=== PATIENT | male | born 1990 | race Caucasian/White ===

== ENCOUNTER 2021-12-01 15:42 | Emergency (ER) | payer OTHER, SELFPAY ==
[2021-12-01 15:46] VITALS: BP 135/97; PULSE 96; RESP 16; TEMP 36.7; O2SAT 98
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
== END 2021-12-01 16:10 | disposition home or self-care (01) ==
PROVIDERS: Emergency Provider Nurse Practitioner Family
DX: T22.111A Burn of first degree of right forearm, initial encounter (principal); X15.8XXA Contact with other hot household appliances, initial encounter; Y93.G2 Activity, grilling and smoking food; G40.909 Epilepsy, unspecified, not intractable, without status epilepticus
CPT/HCPCS: 99203; G0463

== ENCOUNTER 2022-07-20 14:59 | Emergency (ER) | payer OTHER, SELFPAY ==
[2022-07-20 15:09] VITALS: BP 114/77; PULSE 92; RESP 20; TEMP 36.5; O2SAT 100
[2022-07-20 15:10] VITALS: BP 114/77; PULSE 92; RESP 20; TEMP 36.5; O2SAT 100
--- NOTE | 2022-07-20 15:10 | ED.URI ---
HPI - URI/Sore Throat General Chief Complaint: Upper Respiratory Infection Stated Complaint: Sore Throat Time Seen by Provider: 07/20/22 15:30 Source: patient and RN notes reviewed Mode of arrival: ambulatory Limitations: no limitations History of Present Illness HPI Narrative: 32-year-old male presents with concern for 2 day history of cough, sore throat, nasal congestion. He reports persistent cough. Reports his throat hurts mostly when he coughs. Denies fever, chills, sweats, body aches MD elicited complaint: cough and sore throat Related Data Home Medications Medication Instructions Recorded Confirmed levetiracetam 1,000 mg tablet 1,000 mg PO BID 12/01/21 07/20/22 oxcarbazepine 150 mg tablet 450 mg PO TID 12/01/21 07/20/22 diclofenac sodium 75 mg 75 mg PO BID PRN Pain 07/20/22 07/20/22 tablet,delayed release Allergies Allergy/AdvReac Type Severity Reaction Status Date / Time No Known Allergies Allergy Unverified 07/20/22 15:09 Review of Systems Review of Systems: CONSTITUTIONAL: Denies malaise, chills, sweats, or fever. EYES: Denies visual changes, redness, or discharge. ENT: Reports congestion, sore throat. CARDIOVASCULAR: Denies chest pain, palpitations, or edema. RESPIRATORY: Reports cough. Denies dyspnea. GASTROINTESTINAL: Denies abdominal pain, nausea, vomiting, diarrhea SKIN: Denies rash or itching. MUSCULOSKELETAL: Denies myalgia. NEUROLOGIC: Denies headache. All systems reviewed & are unremarkable except as noted in HPI and below PMFSH Comments At time of signature, agree with nursing past medical, surgical, social and family history. There is no relevant family history pertinent to the presenting complaint Exam Narrative: GENERAL: Well-appearing, well-nourished, and in no acute distress. HEAD: Normocephalic EYES: PERRLA, conjunctivae clear ENT: Nares clear, turbinates edematous and erythematous, postnasal drainage. Mucous membranes moist. TM pearly pisano with dull light reflex bilaterally; no tragal tenderness. Oropharynx erythematous without lesions. Tonsils not enlarged and without exudate, no drooling, no hoarseness, no trismus, uvula midline. NECK: Supple. No lymphadenopathy CHEST: Clear to auscultation, breath sounds equal. No wheezing, rhonchi, rales, or stridor. No respiratory distress, speaks in full sentences. Cough noted HEART: Regular rate and rhythm. No murmur heard. SKIN: Warm, dry, no rash. NEURO: Alert and oriented x3. PSYCH: Normal mood and affect Course Course Emergency Course: Patient is aware of diagnosis, understands and agrees to treatment plan. Anticipatory guidance given. Patient agrees to follow-up as directed and is aware of reasons to seek care at the emergency department. Portions of this record may have been created with voice recognition software Level of Care: Express Care Visit Vital Signs Vital signs: Vital Signs Temperature 97.7 F 07/20/22 15:09 Pulse Rate 92 07/20/22 15:09 Respiratory Rate 20 07/20/22 15:09 Blood Pressure 114/77 07/20/22 15:09 Pulse Oximetry 100 07/20/22 15:09 Oxygen Delivery Room Air 07/20/22 15:09 Temperature 97.7 F 07/20/22 15:09 Pulse Rate 92 07/20/22 15:09 Respiratory Rate 20 07/20/22 15:09 Blood Pressure 114/77 07/20/22 15:09 Pulse Oximetry 100 07/20/22 15:09 Oxygen Delivery Room Air 07/20/22 15:09 Reviewed. MDM - URI/Sore Throat MDM Narrative Medical decision making narrative: Differential diagnosis considered: Gibson virus, strep pharyngitis, allergic rhinitis, upper respiratory tract infection, sinusitis, rhinosinusitis, nasopharyngitis. viral pharyngitis, otitis media, otitis externa, pneumonia, bronchitis, viral cough syndrome, viral syndrome, and influenza. Exam findings show no acute concerns or changes; patient is non-toxic appearing and is in no distress. Patient is appropriate for outpatient treatment and follow-up. Lab Data Attestation: I reviewed the patient's lab resu
== END 2022-07-20 16:00 | disposition home or self-care (01) ==
PROVIDERS: Emergency Provider Nurse Practitioner
DX: J06.9 Acute upper respiratory infection, unspecified (principal); G40.909 Epilepsy, unspecified, not intractable, without status epilepticus
CPT/HCPCS: 87081; 87880; 99213; G0463

== ENCOUNTER 2022-09-28 08:32 | Emergency (ER) | payer OTHER, SELFPAY ==
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
[2022-09-28 08:37] VITALS: BP 142/92; PULSE 88; RESP 16; TEMP 36.8; O2SAT 97
== END 2022-09-28 08:58 | disposition home or self-care (01) ==
PROVIDERS: Emergency Provider Nurse Practitioner Family
DX: T78.40XA Allergy, unspecified, initial encounter (principal); R21 Rash and other nonspecific skin eruption
CPT/HCPCS: 99213; G0463

== ENCOUNTER 2022-10-10 18:30 | Emergency (ER) | payer OTHER, SELFPAY ==
[2022-10-10 18:34] VITALS: BP 147/88; PULSE 87; RESP 20; TEMP 36.7; O2SAT 95
--- NOTE | 2022-10-10 18:42 | ED.GENADULT ---
HPI - General Adult General Chief complaint: Upper Respiratory Infection Stated complaint: right side throat hurts when coughs Time Seen by Provider: 10/10/22 18:42 Source: patient, RN notes reviewed and old records reviewed Mode of arrival: ambulatory Limitations: no limitations History of Present Illness HPI narrative: 32-year-old male presents to the [facility] with complaints of right-sided neck pain. Pain when he coughs, pain with movement, pain with palpation. Pain along the lateral aspect. Denies any sore throat, sinus congestion. States he has been sleeping in a reclining chair for the last couple of days. No bruising or swelling. No increased erythema No midline tenderness. Denies fevers Related Data Home Medications Medication Instructions Recorded Confirmed levetiracetam 1,000 mg tablet 1,000 mg PO BID 12/01/21 09/28/22 oxcarbazepine 150 mg tablet 450 mg PO TID 12/01/21 09/28/22 Allergies Allergy/AdvReac Type Severity Reaction Status Date / Time No Known Allergies Allergy Verified 09/28/22 08:46 Review of Systems Review of Systems: All systems reviewed & are unremarkable except as noted in HPI and below Constitutional: Constitutional: Reports no additional constitutional complaints Eyes: Eyes: Reports no additional eye complaints ENT: Reports system reviewed and no additional complaints, except as documented Cardiovascular: Cardiovascular: Reports no additional cardiovascular complaints, Denies chest pain and Denies dyspnea Respiratory: Respiratory: Reports no additional respiratory complaints, Denies chest congestion, Denies cough and Denies dyspnea Gastrointestinal: Gastrointestinal: Reports no additional gastrointestinal complaints, Denies abdominal pain, Denies nausea and Denies vomiting Musculoskeletal: Musculoskeletal: Reports as per HPI Integumentary/Breasts: Skin/Breast: Reports system reviewed and no additional complaints, except as docu Neurologic: Reports system reviewed and no additional complaints, except as documented Psychiatric: Psychiatric: Reports no additional psychiatric complaints Allergic/Immunologic: Allergic/Immunologic: Reports no additional allergic/immunologic complaints PMFSH Comments At the time of my signature, I reviewed and agree with the nursing past medical, surgical, social, and family history. There is no relevant family history pertinent to the patient complaint. Exam Const: General: cooperative, healthy appearing, comfortable, no acute distress, well developed, alert and well nourished Nutritional Appearance: well nourished and obese Orientation/consciousness: patient oriented x3 Limitations: no limitations HENMT: Head: normal to inspection Ears: hearing grossly normal bilaterally and external ears normal Face/Nose/Sinus: Normal external nose present, Normal nares present, Normal nasal mucous membranes and turbinates present and normal facial exam Face and sinus: normal facial exam Mouth: Yes Normal oral and palatal mucosa present, Yes lip normal and Yes moist mucous membranes Throat: posterior oropharynx normal and uvula midline Eyes: General: appearance normal, both eyes and all related structures Alignment and Position: alignment normal Periorbital: periorbital findings normal Conjunctivae: conjunctivae normal Pupils: Equal, round and reactive pupils present EOM: EOMs intact bilaterally Neck: Neck: normal visual inspection, full ROM, no lymphadenopathy and no meningeal signs Other: Right lateral neck pain. Chest: Chest palpation & inspection: normal inspection of the chest Resp: Effort & Inspection: normal respiratory effort and able to speak in complete sentences Auscultation: clear to auscultation bilaterally, no crackles, no rales, no rhonchi and no wheezes Cardio: Rate: regular rate Rhythm: regular rhythm Back/Spine/Pelvis: Cervical Spine: cervical ROM normal Thoracic/Lumbar Spine: No thoracic spinal tenderness Skin: General ski
== END 2022-10-10 18:55 | disposition home or self-care (01) ==
PROVIDERS: Emergency Provider Nurse Practitioner
DX: S16.1XXA Strain of muscle, fascia and tendon at neck level, initial encounter (principal); X58.XXXA Exposure to other specified factors, initial encounter; R05.9 Cough, unspecified; G40.909 Epilepsy, unspecified, not intractable, without status epilepticus
CPT/HCPCS: 87081; 87880; 99213; G0463

== ENCOUNTER 2023-08-07 11:06 | Emergency (ER) | payer OTHER, SELFPAY ==
[2023-08-07 11:10] VITALS: BP 123/76; PULSE 61; RESP 16; TEMP 36.5; O2SAT 97
--- NOTE | 2023-08-07 11:48 | ED.EAR ---
HPI - Ear Problem General Chief complaint: Ear Stated complaint: Right Ear Pain Source: patient Mode of arrival: ambulatory Limitations: no limitations History of Present Illness HPI Narrative: Patient presents for evaluation of right ear pain. Symptom onset this morning. He states that pain is rated 7/10 severity, described as throbbing. He denies any fever, chills, headache, sore throat, respiratory symptoms. He tried taking Tylenol for symptoms, which helped. He has some chronic hearing loss although he is not sure which ear is affected. No recent sick contacts to his knowledge. No drainage from the ears. Related Data Home Medications Medication Instructions Recorded Confirmed levetiracetam 1,000 mg tablet 1,000 mg PO BID 12/01/21 08/07/23 oxcarbazepine 150 mg tablet 450 mg PO TID 12/01/21 08/07/23 Allergies Allergy/AdvReac Type Severity Reaction Status Date / Time No Known Allergies Allergy Verified 08/07/23 11:19 Review of Systems Review of Systems: CONSTITUTIONAL: Denies fever, chills, or sweats. EYES: Denies visual changes, redness, or discharge. ENT: Reports right-sided ear pain. Denies rhinorrhea, congestion, or sore throat CARDIOVASCULAR: Denies chest pain, palpitations, or edema. RESPIRATORY: Denies cough or dyspnea. GASTROINTESTINAL: Denies abdominal pain, nausea, vomiting, or diarrhea. GENITOURINARY: Denies dysuria or hematuria. SKIN: Denies rash or itching. MUSCULOSKELETAL: Denies back pain, joint pain, or myalgia. NEUROLOGIC: Denies headache, numbness, dizziness, or weakness. PSYCHIATRIC: Denies anxiety or depression. [facility] Past Medical History Medical History Seizure Surgical History Surgical History No pertinent past surgical history Family History Family History Mother Family history non-contributory Social History Social History Smoking status: Former smoker Substance use: current Substance use type: marijuana Gender identity (if verbalized by the patient): Male Sexual Orientation (if Verbalized by the Patient): Straight or Heterosexual Spiritual care concerns: No Exam Narrative: GENERAL: Well-appearing, well-nourished, and in no acute distress. HEAD: Normocephalic, atraumatic. EYES: PERRLA and EOMI. ENT: Nares clear, no rhinorrhea or epistaxis. Mucous membranes moist. Oropharynx without tonsillar hypertrophy exudate or other lesions. Right tympanic membrane is erythematous and bulging. NECK: Supple. No adenopathy or masses. No carotid bruits or JVD CHEST: Clear to auscultation. No respiratory distress. No wheezes rales or rhonchi HEART: Regular rate and rhythm. No murmur heard. Normal peripheral pulses. ABDOMEN: Soft, nontender, nondistended, normal active bowel sounds. EXTREMITIES: Normal range of motion. No edema. SKIN: Warm, dry, no rash. NEURO: No focal deficits. Alert and oriented x3. PSYCH: Normal mood and affect. Course Course Emergency Course: This is a 33-year-old male who presented for evaluation of right-sided ear pain. He has evidence of otitis media on exam. Will treat with Augmentin. Recommend he stop smoking marijuana. Follow-up with primary provider. Go to the ER for worsening symptoms. Patient in agreement with plan of care Level of Care: Express Care Visit Vital Signs Vital signs: Vital Signs Temperature 36.5 C 08/07/23 11:10 Pulse Rate 61 08/07/23 11:10 Respiratory Rate 16 08/07/23 11:10 Blood Pressure 123/76 08/07/23 11:10 Pulse Oximetry 97 08/07/23 11:10 Oxygen Delivery Room Air 08/07/23 11:10 Temperature 36.5 C 08/07/23 11:10 Pulse Rate 61 08/07/23 11:10 Respiratory Rate 16 08/07/23 11:10 Blood Pressure 123/76 08/07/23 11:10 Pulse Oxime
== END 2023-08-07 11:52 | disposition home or self-care (01) ==
PROVIDERS: Emergency Provider Nurse Practitioner
DX: H66.91 Otitis media, unspecified, right ear (principal); Z79.899 Other long term (current) drug therapy; Z87.891 Personal history of nicotine dependence
CPT/HCPCS: 99213; G0463

== ENCOUNTER 2024-02-15 11:20 | Emergency (ER) | payer OTHER, SELFPAY ==
--- NOTE | ~2024-02-15 | XR_ITS ---
EXAMINATION: XR shoulder LT min 2V DATE: 02/15/2024 12:04 INDICATION: Left shoulder pain. TECHNIQUE: 4 views of left shoulder were obtained. COMPARISON: None. FINDINGS: Alignment is normal. No acute fracture. There is plate and screw fixation of the scapula. T he glenohumeral joint is normal. There is mild acromioclavicular joint osteoarthritis. IMPRESSION: 1. Mild left acromioclavicular joint osteoarthritis. 2. Internal fixation of left scapula. Reviewed, dictated and finalized at location A.
[2024-02-15 11:26] VITALS: BP 141/98; PULSE 67; RESP 16; TEMP 36.4; O2SAT 98
--- NOTE | 2024-02-15 11:47 | ED.UPPEXIN ---
HPI - Extremity Injury (Upper) General Chief Complaint: Extremity Injury, Upper Stated Complaint: Left Shoulder Injury/Seizure Time Seen by Provider: 02/15/24 11:47 Source: patient Mode of arrival: ambulatory Limitations: no limitations History of Present Illness HPI narrative: 33-year-old male presents with complaint of pain to left shoulder. Patient states that he had a seizure and fell onto left shoulder. History surgical repair to left scapula. Requesting x-ray to make sure he did not damage the plate and screws to his left scapula. Reports pain to anterior aspect of left shoulder following the fall today. Patient has a seizure disorder. No recent changes to his medications. States it is normal for him to have seizures from time to time, was with him during seizure. All systems reviewed and negative except as noted above. Related Data Home Medications Medication Instructions Recorded Confirmed levetiracetam 1,000 mg tablet 1,000 mg PO BID 12/01/21 08/07/23 oxcarbazepine 150 mg tablet 450 mg PO TID 12/01/21 08/07/23 Allergies Allergy/AdvReac Type Severity Reaction Status Date / Time No Known Allergies Allergy Verified 08/07/23 11:19 Review of Systems Review of Systems: CONSTITUTIONAL: Denies fever, chills, or sweats. EYES: Denies visual changes, redness, or discharge. ENT: Denies rhinorrhea, congestion, sore throat, or otalgia. CARDIOVASCULAR: Denies chest pain, palpitations, or edema. RESPIRATORY: Denies cough or dyspnea. GASTROINTESTINAL: Denies abdominal pain, nausea, vomiting, or diarrhea. GENITOURINARY: Denies dysuria or hematuria. SKIN: Denies rash or itching. MUSCULOSKELETAL: Denies back pain or myalgia. Reports left shoulder pain. NEUROLOGIC: Denies headache, numbness, or weakness. PSYCHIATRIC: Denies anxiety or depression. All other systems reviewed are negative, except as documented in HPI. [facility] Past Medical History Medical History (Updated 02/15/24 @ 12:20 by Bebe Black NP) Seizure Surgical History Surgical History No pertinent past surgical history Family History Family History Mother Family history non-contributory Social History Social History Smoking status: Former smoker Substance use: current Substance use type: marijuana Gender identity (if verbalized by the patient): Male Sexual Orientation (if Verbalized by the Patient): Straight or Heterosexual Spiritual care concerns: No Comments At time of signature, agree with nursing past medical, surgical, social and family history. There is no relevant family history pertinent to the presenting complaint. Exam Narrative: GENERAL: This is a well-nourished, well-developed patient, in no apparent distress. HEAD: normocephalic, atraumatic. EYES: PERRL. Sclera clear/white. Vision is grossly intact. EARS: External ears normal NOSE: External nose normal NECK: Neck supple, non-tender without lymphadenopathy, masses or thyromegaly. CARDIOVASCULAR: Regular rate and rhythm without murmurs, gallops, or rubs. RESPIRATORY: Clear to auscultation. Breath sounds equal bilaterally. No wheezes, rales, or rhonchi. SKIN: warm, Dry, intact with no suspicious lesions or rash, good texture and turgor. NEURO: awake, alert, and oriented to person, place and time. There were no obvious focal neurologic abnormalities. EXTREMITIES: Tenderness to anterior aspect left shoulder joint. No deformity. Range of motion intact. Strength right upper extremity 5/5. Course Course Level of Care: Express Care Visit Vital Signs Vital signs: Vital Signs Temperature 36.4 C 02/15/24 11:26 Pulse Rate 67 02/15/24 11:26 Respiratory Rate 16 02/15/24 11:26 Blood Pressure 141/98 H 02/15/24 11:26 Pulse Oximetry 98 02/15/24 11:26
== END 2024-02-15 12:24 | disposition home or self-care (01) ==
PROVIDERS: Emergency Provider Nurse Practitioner Family
DX: S43.402A Unspecified sprain of left shoulder joint, initial encounter (principal); W19.XXXA Unspecified fall, initial encounter; G40.909 Epilepsy, unspecified, not intractable, without status epilepticus
CPT/HCPCS: 73030; 99213; G0463

== ENCOUNTER 2024-03-31 17:07 | Emergency (ER) | payer OTHER, SELFPAY ==
[2024-03-31 17:47] VITALS: BP 126/84; PULSE 81; RESP 20; TEMP 36.8; O2SAT 98
--- NOTE | 2024-03-31 18:16 | ED.URI ---
HPI - URI/Sore Throat General Chief Complaint: Upper Respiratory Infection Stated Complaint: throat Time Seen by Provider: 03/31/24 18:16 History of Present Illness HPI Narrative: 33-year-old male presented for complaint of sore throat, cough, nasal congestion . onset today. Endorses exposure to strep throat. Not taking anything for symptoms. Related Data Home Medications Medication Instructions Recorded Confirmed levetiracetam 1,000 mg tablet 1,000 mg PO BID 12/01/21 03/31/24 oxcarbazepine 150 mg tablet 450 mg PO TID 12/01/21 03/31/24 Allergies Allergy/AdvReac Type Severity Reaction Status Date / Time No Known Allergies Allergy Verified 03/31/24 18:17 Review of Systems Review of Systems: CONSTITUTIONAL: Denies body aches, fever, chills, or sweats. EYES: Denies visual changes, redness, or discharge. ENT: Reports sore throat, rhinorrhea, congestion CARDIOVASCULAR: Denies chest pain, palpitations, or edema. RESPIRATORY: Denies dyspnea. GASTROINTESTINAL: Denies abdominal pain, nausea, vomiting, or diarrhea. SKIN: Denies rash, itching, or wounds. MUSCULOSKELETAL: Denies back pain, joint pain, or myalgia. NEUROLOGIC: Denies headache PMFSH Past Medical History Medical History Seizure Surgical History Surgical History No pertinent past surgical history Family History Family History Mother Family history non-contributory Social History Social History Smoking status: Former smoker Substance use: current Substance use type: marijuana Gender identity (if verbalized by the patient): Male Sexual Orientation (if Verbalized by the Patient): Straight or Heterosexual Spiritual care concerns: No Exam Narrative: GENERAL: mildly Ill-appearing, no acute distress. EYES: conjunctivae clear ENT: Mucous membranes moist. left TM pearly pisano with normal light reflex; Right TM erythematous, bulging and intact; canal not erythematous, no drainage no tragal tenderness. Oropharynx erythematous without lesions. Tonsils enlarged and without exudate. No drooling, no hoarseness, no trismus, uvula midline. No tripod positioning, hot potato voice, or soft palate swelling. NECK: Supple. No lymphadenopathy CHEST: Clear to auscultation, breath sounds equal. No respiratory distress, speaks in full sentences. HEART: Regular rate and rhythm. No murmur heard. SKIN: Warm, dry, no rash. NEURO: Alert and oriented x3. Course Course Emergency Course: Patient is aware of diagnosis, understands and agrees to treatment plan. Anticipatory guidance given. Patient agrees to follow-up as directed and is aware of reasons to seek care at the emergency department. Portions of this record may have been created with voice recognition software Level of Care: Express Care Visit Vital Signs Vital signs: Vital Signs Temperature 98.2 F 03/31/24 17:47 Pulse Rate 81 03/31/24 17:47 Respiratory Rate 20 03/31/24 17:47 Blood Pressure 126/84 03/31/24 17:47 Pulse Oximetry 98 03/31/24 17:47 Temperature 98.2 F 03/31/24 17:47 Pulse Rate 81 03/31/24 17:47 Respiratory Rate 20 03/31/24 17:47 Blood Pressure 126/84 03/31/24 17:47 Pulse Oximetry 98 03/31/24 17:47 MDM - URI/Sore Throat MDM Narrative Medical decision making narrative: negative strep result reviewed with pt. will provide antibiotic based on PE, CC, known exposure. he will start it if symptoms worsen over the next few days. Advise supportive treatments. Patient is appropriate for outpatient treatment and follow-up. Differential Diagnosis Differential diagnosis: Likely upper respiratory infection, viral infection and pharyngitis Discharge Plan Discharge Clinical Impression: Otitis media, Pharyngitis
[2024-03-31 19:58] LABS: EDSTREPNEGPOS1 Presumptive Negative
== END 2024-03-31 18:30 | disposition home or self-care (01) ==
PROVIDERS: Emergency Provider Nurse Practitioner Family
DX: H66.91 Otitis media, unspecified, right ear (principal); J02.9 Acute pharyngitis, unspecified; G40.909 Epilepsy, unspecified, not intractable, without status epilepticus; F12.90 Cannabis use, unspecified, uncomplicated; Z87.891 Personal history of nicotine dependence
CPT/HCPCS: 87081; 87880; 99213; G0463

== ENCOUNTER 2024-05-10 11:56 | Emergency (ER) | payer OTHER, SELFPAY ==
[2024-05-10 12:08] VITALS: BP 125/99; PULSE 96; RESP 20; TEMP 36.8; O2SAT 99
--- NOTE | 2024-05-10 13:11 | ED.URI ---
HPI - URI/Sore Throat General Chief Complaint: Upper Respiratory Infection Stated Complaint: cough/weak/nose running Time Seen by Provider: 05/10/24 12:35 Source: patient, RN notes reviewed and old records reviewed Mode of arrival: ambulatory Limitations: no limitations History of Present Illness HPI Narrative: 34 year old male who presents to express care with complaints of cough, runny nose, weakness headache and body aches since yesterday. Patient reports that he has been taking Tylenol for his generalized body aches, reports that he has not noted any fevers. Patient reports that he does have history of seizures takes daily Keppra and oxcarbazepine..Patient reports no known ill contacts. MD elicited complaint: cough and sore throat Pertinent past history: other (seizures) Onset (ago): day(s) (since yesterday) Severity: moderate Pain scale (0-10): 6 Able to tolerate fluids by mouth: Yes Treatments prior to arrival: acetaminophen Related Data Home Medications Medication Instructions Recorded Confirmed levetiracetam 1,000 mg tablet 1,000 mg PO BID 12/01/21 05/10/24 oxcarbazepine 150 mg tablet 450 mg PO TID 12/01/21 05/10/24 Allergies Allergy/AdvReac Type Severity Reaction Status Date / Time No Known Allergies Allergy Verified 05/10/24 12:21 Review of Systems Review of Systems: CONSTITUTIONAL:Reports malaise,no chills, sweats, or fever. EYES: Denies visual changes, redness, or discharge. ENT: Reports rhinorrhea, congestion, sinus pain, no otalgia and no sore throat. CARDIOVASCULAR: Denies chest pain, palpitations, or edema. RESPIRATORY: Reports cough.? Denies dyspnea. GASTROINTESTINAL: Denies abdominal pain, nausea, vomiting, diarrhea SKIN: Denies rash or itching. MUSCULOSKELETAL: Reports myalgia. NEUROLOGIC: Reports headache. All systems reviewed & are unremarkable except as noted in HPI and below PMFSH Past Medical History Medical History (Updated 05/11/24 @ 19:54 by Awilda Escobar NP) Scapular fracture left with surgical repair Seizure Surgical History Surgical History (Updated 05/11/24 @ 19:55 by Awilda Escobar NP) History of appendectomy Family History Family History Mother Family history non-contributory Social History Social History (Updated 05/11/24 @ 19:55 by Awilda Escobar NP) Smoking status: Former smoker Alcohol use details: reports no alcohol Substance use: current Substance use type: marijuana Gender identity (if verbalized by the patient): Male Sexual Orientation (if Verbalized by the Patient): Straight or Heterosexual Spiritual care concerns: No Comments At time of signature, agree with nursing past medical, surgical, social and family history. There is no relevant family history pertinent to the presenting complaint Exam Narrative: GENERAL: mildly ill -appearing, well-nourished, obese, and in no acute distress. HEAD: Normocephalic EYES: PERRLA, conjunctivae clear ENT: Nares clear, turbinates edematous and erythematous, clear discharge. Mucous membranes moist. TM pearly pisano with dull light reflex bilaterally; no tragal tenderness. Oropharynx erythematous without lesions. Tonsils not enlarged and without exudate, no drooling, no hoarseness, no trismus, uvula midline.post nasal drainage NECK: Supple. No lymphadenopathy CHEST: Clear to auscultation, breath sounds equal. No wheezing, rhonchi, rales, or stridor. No respiratory distress, speaks in full sentences.loose cough,SAO2 99% on room air HEART: Regular rate and rhythm. No murmur heard. SKIN: Warm, dry, no rash. NEURO: Alert and oriented x3. PSYCH: Normal mood and affect Course Course Emergency Course: Patient is aware of diagnosis, understands and agrees to treatment plan.? Anticipatory guidance given.? Patient agrees to follow-up as directed and is aware of reasons to seek care at the emergency dep
== END 2024-05-10 13:25 | disposition home or self-care (01) ==
PROVIDERS: Emergency Provider Registered Nurse
DX: U07.1 COVID-19 (principal); G40.909 Epilepsy, unspecified, not intractable, without status epilepticus; Z87.891 Personal history of nicotine dependence; F12.90 Cannabis use, unspecified, uncomplicated
CPT/HCPCS: 87426; 99212; G0463

== ENCOUNTER 2024-10-30 17:34 | Emergency (ER) | payer OTHER, SELFPAY ==
--- OUTSIDE RECORDS SUMMARY | 2024-10-30 17:36 | XMS_ITS | Clinical Summary ---
Author Organization [facility] Address [address] [place] [address] Phone Care Team Providers Care Paralegal Supervisor Name Role Phone Provider, None Primary Care Provider Unavailabl e Allergies No known active allergies Medications ondansetron (ZOFRAN) 4 MG Tablet Take 1 Tab by mouth every 8 hours as needed for Nausea. 10 Tab 0 09/26/2016 Active omeprazole (PRILOSEC) 20 MG CAPSULE DELAYED RELEASE Take 1 Cap by mouth daily. 30 Cap 1 03/04/2017 Active HYDROcodone-new taminophen (NORCO) 5-325 MG Tablet Take 1 Tab by mouth every 4 hours as needed for Pain. 15 Tab 05/25/2017 Active levETIRAcetam (KEPPRA PO) Take by mouth. Active Topiramate (TOPAMAX PO) Take by mouth. Active ibuprofen (MOTRIN) 600 MG Tablet Take 1 Tab by mouth every 6 hours as needed for Moderate or more severe pain. 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 Family History Medical History Relation Name Comments No Known Problems Father Hypertension Maternal Grandmother AIDS/HIV Mother Depression Mother Diabetes Mother Hypertension Paternal Uncle Relation Name Status Comments Father Alive Maternal Grandmother Mother Alive Paternal Uncle Social History Tobacco Use Types Packs/Day Years Used Date Smoking Tobacco: Every Day Cigarettes 0.5 9 Smokeless Tobacco: Never Tobacco Cessation:Ready to Q uit: No; Counseling Given: Yes Alcohol Use Standard Drinks/Week Comments No 0 (1 standard drink = 0.6 oz pur e alcohol) Sexually Active Control Partners Comments Yes Female Sex and Gender Information Value Date Recorded Sex Assigned at Not on file Legal Sex Male 9:40 PM CDT Gender Identity Not on file Sexual Orientation Not on file Last Filed Vital Signs Vital Sign Reading Time Taken Comments Blood Pressure 100/41 03/15/2019 3:00 PM CDT Pulse 69 03/15/2019 3:15 PM CDT Temperature 36.3 C (97.4 F) 03/15/2019 12:22 PM CDT Respiratory Rate 21 03/15/2019 3:00 PM CDT Oxygen Saturation 95% 03/15/2019 3:15 PM CDT Inhaled Oxygen Concentration - - Weight 102.1 kg (225 lb) 03/15/2019 12:22 PM CDT Height 188 cm (6' 2 ) 03/15/2019 12:22 PM CDT Body Mass Index 28.89 03/15/2019 12:22 PM CDT Plan of Treatment Health Maintenance Due Date Last Done Comments Hepatitis C Virus (HCV) Screening 1990 TdaP Immunization 1990 Influenza Immunization (#1) 2024 SARS-COV-2 Immunization ( season) 2024 10/13/2021, 09/15/2021 Respiratory Syncytial Virus (RSV) Immunization (Adult) (1 - 1-dose 75+ series) 2065 Hepatitis B Immunization Completed 003, 06/20/2002, 07/23/2000 Meningococcal Immunization (ACWY) Aged Out 06/22/2005 No longer eligible b ased on patient's age to complete this topic Pneumococcal Immunization Combined Aged Out No longer eligible b ased on patient's age to complete this topic Rotavirus Immunization Aged Out No lo nger eligible based on patient's age to complete this topic Insurance MEDICAID [employer] Advance Directives * Full Code (Latest Code Status on File) Date Activated Date Inactivated Comments 02/05/2016 3:41 PM 02/07/2016 4:23 PM CPR-Full Sha atment: FULL ARREST: Attempt Resuscitation/CPR wit intubation and mechanical ventilation. PRE-ARREST: Use entire range of life support measures to stabilize the patient. Care Teams Paralegal Supervisor Relationship Specialty Start Date End Date Provider, None [place] PCP - General Orthopaedic Surgery 10/15/16
--- OUTSIDE RECORDS SUMMARY | 2024-10-30 17:36 | XMS_ITS | Patient Health Summary ---
Author Organization [facility] Address [address] [place] [address] Care Team Providers Care Rubber Mixer Name Role Phone Unavailable Primary Care Provider Unavailabl e Note from [facility],non-owned Affiliates and Associated Physician Practices is amultiple site organization consisting of ambulatory clinics and hospital sitesin [place], [place], [place] and [place]. This disclosure is being madepursuant to the Care Everywhere program and may not contain all information available regarding this patient. Last updated 18.[facility] Allergies * Pneumococcal Vaccine(Nausea and/or Vomiting) -Low Criticality Medications * Be aware that medications may not be up to date on this document. Alwaysverify current medications with the patient. 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 12/20/2016 Social History Tobacco Use Types Packs/Day Years Used Date Smoking Tobacco: Former Cigarettes Q uit: 07/31/2019 Smokeless Tobacco: Never Alcohol Use Standard Drinks/Week Comments Never 0 (1 standard drink = 0.6 oz pur e alcohol) AUDIT-C Answer Date Recorded Frequency of Alcohol Consumption Never 10/18/2020 Average Number of Drinks Not on file 021 Frequency of Binge Drinking Not on file 09/2020 Sex and Gender Information Value Date Recorded Sex Assigned at Not on file Gender Identity Not on file Sexual Orientation Not on file Last Filed Vital Signs Vital Sign Reading Time Taken Comments Blood Pressure 126/83 08/07/2019 1:12 PM HEAD MVA REACTOR OPERATOR Pulse 64 08/07/2019 1:12 PM HEAD MVA REACTOR OPERATOR Temperature 36.7 C (98.1 F) 07/31/2019 6:00 AM HEAD MVA REACTOR OPERATOR Respiratory Rate 16 07/31/2019 5:17 AM HEAD MVA REACTOR OPERATOR Oxygen Saturation 97% 08/07/2019 1:12 PM HEAD MVA REACTOR OPERATOR Inhaled Oxygen Concentration - - Weight 108.4 kg (239 lb) 08/07/2019 1:12 PM HEAD MVA REACTOR OPERATOR Height 185.4 cm (6' 1 ) 08/07/2019 1:12 PM HEAD MVA REACTOR OPERATOR Body Mass Index 31.53 08/07/2019 1:12 PM HEAD MVA REACTOR OPERATOR Procedures * OXCARBAZEPINE BLOOD(Performed 08/07/2019) Performed for Localz-rltd symptomatic epilepsy w cmplx part sz, francia, wo status (HCC), Medication monitoring encounter * TOPIRAMATE LEVEL(Performed 08/07/2019) Performed for Localz-rltd symptomatic epilepsy w cmplx part szfrancia, wo status (HCC), Medication monitoring encounter * LEVETIRACETAM LEVEL(Performed 08/07/2019) Performed for Localz-rltd symptomatic epilepsy w cmplx part szcorbinntrakaty, wo status (HCC), Medication monitoring encounter * XR CHEST 2VW(Performed 07/31/2019) Performed for Cough * MAGNESIUM BLOOD(Performed 07/31/2019) * COMPREHENSIVE METABOLIC PANEL(Performed 07/31/2019) * ALCOHOL ETHYL BLOOD(Performed 07/31/2019) * CBC W AUTO DIFFERENTIAL(Performed 07/31/2019) * TOPIRAMATE LEVEL(Performed 07/31/2019) * OXCARBAZEPINE BLOOD(Performed 07/31/2019) * LEVETIRACETAM LEVEL(Performed 07/31/2019) * GLUCOSE - POINT OF CARE(Performed 07/31/2019) * MRI BRAIN WO CONTRAST(Performed 12/20/2016) * COMPREHENSIVE METABOLIC PANEL(Performed 11/30/2016) * CBC W AUTO DIFFERENTIAL(Performed 11/30/2016) * CBC W AUTO DIFFERENTIAL(Performed 11/30/2016) * COMPREHENSIVE METABOLIC PANEL(Performed 07/10/2016) * CBC W AUTO DIFFERENTIAL(Performed 07/10/2016) * CBC W AUTO DIFFERENTIAL(Performed 07/10/2016) Results * (ABNORMAL) LEVETIRACETAM LEVEL (08/07/2019 2:16 PM HEAD MVA REACTOR OPERATOR) Only the most recent of2 resultswithin the time period is included. Levetiracetam 46.8(H) 10.0 - 40.0 ug/mL 08/10/2019 2:07 PM HEAD MVA REACTOR OPERATOR [facility] ([facility]) Comment: This test was developed and its performance characteristics determined by [facility]. It has not been cleared or approved by the Food and Drug Administration. Blood BLOOD SPECIMEN / Unknown Lab Venipuncture / Unknown 08/07/2019 2:16 PM HEAD MVA REACTOR OPERATOR 08/07/2019 3:08 PM HEAD MVA REACTOR OPERATOR Narrative [facility] ([facility]) - 08/10/2019 2:07 PM HEAD MVA REACTOR OPERATOR Performed at: [address] [place] [id number] Cleaning Matron: Kelsey Glasgow MD, Phone: [phone] Juan Antonio Brar APRN-RESEARCH PROGRAM COORDINATOR LAB - THERAPEU TIC DRUG MONITORING ORDERABLES [facility] ([facility]) [address] [place] [address] * OXCARBAZEPINE BLOOD (08/07/2019 2:16 PM HEAD MVA REACTOR OPERATOR) Only the most recent of2 resultswithin the time period is included. Oxcarbazepine Metabolite 12 10 - 35 ug/mL 08/10/2019 1:07 PM HEAD MVA REACTOR OPERATOR [facility] ([facility]) Comment: This test was developed and its performance characteristics determined by [facility]. It has not been cleared or approved by the Food and Drug Administration. Detection Limit = 1 Blood BLOOD SPECIMEN / Unknown Lab Venipuncture / Unknown 08/07/2019 2:16 PM HEAD MVA REACTOR OPERATOR 08/07/2019 3:08 PM HEAD MVA REACTOR OPERATOR Narrative [facility] ([facility]) - 08/10/2019 1:07 PM HEAD MVA REACTOR OPERATOR Performed at: 01 - [address] [id number] Cleaning Matron: Kelsey Glasgow MD, Phone: [phone] Juan Antonio BAIRD LAB - CHEMISTR Y ORDERABLES Performing Organization Address City/[facility] [[email or web address]] Co de Phone Number [facility] ([facility]) [address] [place] [address], [place] * TOPIRAMATE LEVEL (08/07/2019 2:16 PM HEAD MVA REACTOR OPERATOR) Only the most recent of2 resultswithin the time period is included. [facility] Topiramate 8.2 2.0 - 25.0 ug/mL 08/11/2019 2:08 PM HEAD MVA REACTOR OPERATOR [facility] ([facility]) Comment: This test was developed and its performance characteristics determined by [facility]. It has not been cleared or approved by the Food and Drug Administration. Detection Limit = 1.0 Blood BLOOD SPECIMEN / Unknown Lab Venipuncture / Unknown 08/07/2019 2:16 PM HEAD MVA REACTOR OPERATOR 08/07/2019 3:08 PM HEAD MVA REACTOR OPERATOR Narrative [facility] ([facility]) - 08/11/2019 2:08 PM HEAD MVA REACTOR OPERATOR Performed at: - [address] [id number] Cleaning Matron: Kelsey Glasgow MD, Phone: [phone] Juan Antonio BAIRD LAB - THERAPEU TIC DRUG MONITORING ORDERABLES Performing Organization Address [facility] [[email or web address]] Co de Phone Number [facility] ([facility]) [address] [place] [address], [facility] * XR CHEST 2VW (07/31/2019 6:12 AM HEAD MVA REACTOR OPERATOR) Anatomical Region Laterality Modality Chest Radiographic Fina ging 07/31/2019 6:20 AM HEAD MVA REACTOR OPERATOR Impressions 07/31/2019 8:43 AM HEAD MVA REACTOR OPERATOR IMPRESSION: No acute pulmonary process. Dictated by Tyler Kirk MD (resident). Dr. INES Deleon M.D. have personally reviewed and interpreted this examination/study. This report was electronically signed by INES PRICE M.D. on 07/31/2019 8:43 AM . Narrative 07/31/2019 8:43 AM HEAD MVA REACTOR OPERATOR EXAMINATION: Chest radiograph, PA and lateral view HISTORY: Cough COMPARISON: None. FINDINGS: There is no focal consolidation, pleural effusion, or pneumothorax. The cardiomediastinal silhouette is normal. The visible bony thorax is intact. Procedure Note Ines Price MD - 07/31/2019 EXAMINATION: Chest radiograph, PA and lateral view HISTORY: Cough COMPARISON: None. FINDINGS: There is no focal consolidation, pleural effusion, or pneumothorax. The cardiomediastinal silhouette is normal. The visible bony thorax isintact. IMPRESSION: No acute pulmonary process. Dictated by Tyler Kirk MD (resident). Dr. INES Deleon M.D. have personally reviewed and interpreted this examination/study. This report was electronically signed by INES PRICE M.D. on07/31/2019 8:43 AM . Caleb Hernandez MD DIAGNOSTIC IMAGING O RDERABLES * (ABNORMAL) CBC W AUTO DIFFERENTIAL (07/31/2019 5:49 AM HEAD MVA REACTOR OPERATOR) Only the most recent of5 resultswithin the time period is included. WBC 12.1(H) 3.5 - 10.5 10 3/uL 07/31/2019 6:[address] [facility] RBC 5.08 4.30 - 5.70 10 6/uL 07/31/2019 6:[address] [facility] Hemoglobin 14.9 13.5 - 17.5 g/dL 07/31/2019 6:[address] [facility] Hematocrit 44.4 39.0 - 50.0 % 07/31/2019 6:03 AM [facility] MCV 87.4 81.0 - 97.0 fL 07/31/2019 6:03 AM [facility] MCH 29.3 28.0 - 34.0 pg 07/31/2019 6:03 AM [facility] MCHC 33.6 32.0 - 36.0 g/dL 07/31/2019 6:03 AM [facility] Platelet Count 208 150 - 400 10 3/uL 07/31/2019 6:03 AM [facility] RDW-SD 39.6 36.0 - 50.0 fL 07/31/2019 6:03 AM [facility] RDW-CV 12.5 11.2 - 14.8 % 07/31/2019 6:03 AM [facility] MPV 11.0 9.3 - 12.8 fL 07/31/2019 6:03 AM [facility] nRBC Absolute 0.00 0 10 3/uL 07/31/2019 6:03 AM [facility] nRBC Auto 0.0 0 /100 WBC 07/31/2019 6:03 AM [facility] Neutrophils % 73.2(H) 35.0 - 70.0 % 07/31/2019 6:03 AM [facility] Lymphocytes % 17.1(L) 19.7 - 55.1 % 07/31/2019 6:03 AM [facility] Monocytes % 6.4 3.0 - 15.0 % 07/31/2019 6:03 AM [facility] Eosinophils % 2.3 0.0 - 6.0 % 07/31/2019 6:03 AM [facility] Basophil % 0.5 0.0 - 1.5 % 07/31/2019 6:03 AM [facility] Neutrophils Absolute 8.9(H) 1.6 - 7.0 10 3/uL 07/31/2019 6:03 AM [facility] Lymphocyte Absolute 2.1 0.8 - 2.9 10 3/uL 07/31/2019 6:03 AM [facility] Monocytes Absolute 0.78(H) 0.14 - 0.66 10 3/uL 07/31/2019 6:03 AM [facility] Eosinophils Absolute 0.28 0.00 - 0.45 10 3/uL 07/31/2019 6:03 AM [facility] Basophils Absolute 0.06 0.00 - 0.06 10 3/uL 07/31/2019 6:03 AM [facility] Immature Granulocytes % 0.5 0.0 - 1.0 % 07/31/2019 6:03 AM [facility] Blood BLOOD SPECIMEN / Unknown Venipuncture / Unknown 07/31/2019 5:49 AM HEAD MVA REACTOR OPERATOR 07/31/2019 5:58 AM HEAD MVA REACTOR OPERATOR Raheel Rubalcava III, MD LAB - HEMATOLO GY ORDERABLES [facility] [address] [place] [address] * (ABNORMAL) COMPREHENSIVE METABOLIC PANEL (07/31/2019 5:49 AM HEAD MVA REACTOR OPERATOR) Only the most recent of3 resultswithin the time period is included. BUN 19 7 - 26 mg/dL 07/31/2019 6:21 AM [facility] Creatinine 1.0 0.6 - 1.2 mg/dL 07/31/2019 6:21 AM [facility] Sodium 142 136 - 145 mmol/L 07/31/2019 6:21 AM [facility] Potassium 3.9 3.5 - 4.5 mmol/L 07/31/2019 6:21 AM [facility] Chloride 112(H) 98 - 107 mmol/L 07/31/2019 6:21 AM [facility] CO2 19(L) 22 - 29 mmol/L 07/31/2019 6:21 AM [facility] Glucose 96 70 - 115 mg/dL 07/31/2019 6:21 AM [facility] Calcium 9.0 8.4 - 10.2 mg/dL 07/31/2019 6:21 AM [facility] Protein Total 7.1 6.0 - 8.3 g/dL 07/31/2019 6:21 AM [facility] Albumin 3.8 3.4 - 5.0 g/dL 07/31/2019 6:21 AM [facility] Bilirubin Total 0.4 0.2 - 1.2 mg/dL 07/31/2019 6:[address] [facility] Alkaline Phosphatase 116 40 - 150 Units/L 07/31/2019 6:[address] [facility] ALT 31 0 - 55 Units/L 07/31/2019 6:21 AM [facility] AST 22 5 - 34 Units/L 07/31/2019 6:21 AM [facility] Anion Gap 15 8 - 18 07/31/2019 6:21 AM [facility] BUN/Creatinine Ratio 19 7 - 23 07/31/2019 6:21 AM [facility] Osmolality Calculated 296 270 - 300 mOsm/kg 07/31/2019 6:21 AM [facility] Albumin/Globulin Ratio 1.2 1.1 - 2.3 07/31/2019 6:21 AM [facility] eGFR >60 >60 mL/min/1.7 3 m2 07/31/2019 6:21 AM [facility] Blood BLOOD SPECIMEN / Unknown Venipuncture / Unknown 07/31/2019 5:49 AM HEAD MVA REACTOR OPERATOR 07/31/2019 5:58 AM HEAD MVA REACTOR OPERATOR Raheel Rubalcava III, MD LAB - CHEMISTR Y ORDERABLES [address] [phone] * MAGNESIUM BLOOD (07/31/2019 5:49 AM HEAD MVA REACTOR OPERATOR) Magnesium 2.1 1.6 - 2.6 mg/dL 07/31/2019 7:30 AM [facility] Blood BLOOD SPECIMEN / Unknown Venipuncture / Unknown 07/31/2019 5:49 AM HEAD MVA REACTOR OPERATOR 07/31/2019 5:58 AM HEAD MVA REACTOR OPERATOR Eyad Ortega MD LAB - CHEMISTRY JULIO CUETO [address] [phone] * ALCOHOL ETHYL BLOOD (07/31/2019 5:49 AM HEAD MVA REACTOR OPERATOR) Interpretation Ethanol None Detected None Detected mg/dL 07/31/2019 6:21 AM [facility] Comment: Ethanol levels less than 10 mg/dL are resulted as None detected . Blood BLOOD SPECIMEN / Unknown Venipuncture / Unknown 07/31/2019 5:49 AM HEAD MVA REACTOR OPERATOR 07/31/2019 5:58 AM HEAD MVA REACTOR OPERATOR Raheel Rubalcava III, MD LAB - CHEMISTR Y ORDERABLES Performing Organization Address City/[facility]/ZIP Co de Phone Number [address] [phone] * GLUCOSE - POINT OF CARE (07/31/2019 5:35 AM [facility]) Glucose WB/POC 96 70 - 115 mg/dL 07/31/2019 5:37 AM [facility] Specimen Type Arterial/C apillary 07/31/2019 5:37 AM [facility] Comment:MEDICAL CLAIMS ASSISTANT: Wilber lagunas Blood BLOOD SPECIMEN / Unknown 07/31/2019 5:35 AM HEAD MVA REACTOR OPERATOR 07/31/2019 5:37 AM HEAD MVA REACTOR OPERATOR Provider Unknown LAB - POINT OF CARE ORDERABLES Performing Organization Address [facility] [[email or web address]] Co de Phone Number [address] [phone] * MRI BRAIN WO CONTRAST (12/20/2016 7:29 AM CDT) Anatomical Region Laterality Modality Head Other Impressions 12/20/2016 9:30 AM CDT IMPRESSION: 1. Mild cerebellar atrophy which may be related to chronic medication use. Otherwise, no findings to explain the patient's symptoms. This report was approved by Graham Lou M.D. on 12/20/2016 8:51 AM . IDr. ELIS M.D. have personally reviewed and interpreted this examination/study. This report was electronically signed by ELIS BYRNE M.D. on 12/20/2016 9:30 AM . Narrative 12/20/2016 9:30 AM CDT EXAMINATION: Magnetic resonance imaging (MRI) of the brain without contrast HISTORY: Intractable epilepsy TECHNIQUE: MRI of the brain was performed without contrast according to an epilepsy protocol. This included detailed coronal imaging of the hippocampi and temporal lobes. FINDINGS: No prior study is available for comparison at the time of this dictation. No evidence of acute or chronic hemorrhage is identified. No evidence of acute cerebral infarction is seen. The ventricles are of normal size, shape, and morphology. No mass effect or midline shift is seen. No heterotopia or malformations of cortical development are identified. The hippocampi are symmetric in size and signal. The corpus callosum and sella appear normal. There is mild cerebellar atrophy, which is likely related to chronic medication use. The brainstem and craniocervical junction appear normal. Other than mild bilateral mastoid effusions, the visualized portions of the orbits, paranasal sinuses, and mastoids appear normal. Normal flow voids are demonstrated in the carotid arteries and basilar artery. The calvarium and visualized cervical spine appear normal. Procedure Note Elis Byrne MD - 12/14/2017 EXAMINATION: Magnetic resonance imaging (MRI) of the brain withoutcontrast HISTORY: Intractable epilepsy TECHNIQUE: MRI of the brain was performed without contrast according to anepilepsy protocol. This included detailed coronal imaging of thehippocampi and temporal lobes. FINDINGS: No prior study is available for comparison at the time of thisdictation. No evidence of acute or chronic hemorrhage is identified. No evidence ofacute cerebral infarction is seen. The ventricles are of normal size,shape, and morphology. No mass effect or midline shift is seen. Noheterotopia or malformations of cortical development are identified. The hippocampi are symmetric in size andsignal. The corpus callosum and sella appear normal. There is mildcerebellar atrophy, which is likely related to chronic medication use. Thebrainstem and craniocervical junction appear normal. Other than mild bilateral mastoid effusions, the visualized portions ofthe orbits, paranasal sinuses, and mastoids appear normal. Normal flowvoids are demonstrated in the carotid arteries and basilar artery. Thecalvarium and visualized cervical spine appear normal. IMPRESSION IMPRESSION: 1. Mild cerebellar atrophy which may be related to chronic medication use.Otherwise, no findings to explain the patient's symptoms. This report was approved by Graham Lou M.D. on 12/20/2016 8:51 AM . IDr. ELIS M.D. have personally reviewed and interpreted thisexamination/study. This report was electronically signed by ELIS BYRNE M.D. on 12/20/20169:30 AM . Km Crouch MD MR ORDERABLES
--- OUTSIDE RECORDS SUMMARY | 2024-10-30 17:36 | XMS_ITS | Clinical Summary ---
Author Organization [facility] [employer] Address [address] [place] [address] Care Team Providers Care Clerk Rating Name Role Phone Unavailable Primary Care Provider Unavailabl e Source Comments [facility],non-owned Affiliates and Associated Physician Practices is amultiple site organization consisting of ambulatory clinics and hospital sitesin [place], [place], [place] and [place]. This disclosure is being madepursuant to the Care Everywhere program and may not contain all information available regarding this patient. Last updated 18.[facility] [employer] Allergies Active Allergy Reactions Criticality Noted Date Comments Pneumococcal Vaccine Nausea and/or Vomiting Low Medications * Be aware that medications may not be up to date on this document. Alwaysverify current medications with the patient. Medication Sig Dispensed Refills Start Date End Date Status topiramate (TOPAMAX) 200 MG tabletIndications:Loc alz-rltd symptomatic epilepsy w cmplx part rula, francia, wo status ([facility]),Medication monitoring encounter Take 1 tablet by mouth 2 times daily 60 tablet 4 08/07/2019 Active OXcarbazepine (TRILEPTAL) 150 MG tabletIndications:Loc alz-rltd symptomatic epilepsy w cmplx part sz, notintrac, wo status ([facility]),Medication monitoring encounter TAKE 3 TABLETS BY MOUTH TWICE A DAY 180 tablet 3 10/10/2021 Active levETIRAcetam (KEPPRA) 1000 MG tabletIndications:Loc alz-rltd symptomatic epilepsy w cmplx part sz, francia, wo status (HCC),Medication monitoring encounter TAKE 2 TABLETS BY MOUTH TWICE A DAY 120 tablet 1 02/09/2022 Active Active Problems Problem Noted Date Diagnosed Date Seizures 07/31/2019 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, francia, wo status 12/20/2016 Family History Medical History Relation Name Comments None Known Father Diabetes - Type 2 Mother Relation Name Status Comments Father Mother Alive Social History Tobacco Use Types Packs/Day Years [...] Comments Blood Pressure 126/83 08/07/2019 1:12 PM MATRIX BATH OPERATOR Pulse 64 08/07/2019 1:12 PM MATRIX BATH OPERATOR Temperature 36.7 C (98.1 F) 07/31/2019 6:00 AM MATRIX BATH OPERATOR Respiratory Rate 16 07/31/2019 5:17 AM MATRIX BATH OPERATOR Oxygen Saturation 97% 08/07/2019 1:12 PM MATRIX BATH OPERATOR Inhaled Oxygen Concentration - - Weight 108.4 kg (239 lb) 08/07/2019 1:12 PM MATRIX BATH OPERATOR Height 185.4 cm (6' 1 ) 08/07/2019 1:12 PM MATRIX BATH OPERATOR Body Mass Index 31.53 08/07/2019 1:12 PM MATRIX BATH OPERATOR Plan of Treatment Health Maintenance Due Date Last Done Comments Opioid Medication Agreement - Annual 1990 HIV SCREENING 2005 HEPATITIS C SCREENING 04/16/2008 DTAP/TDAP/TD VACCINES (1 - Tdap) 2009 HEPATITIS B VACCINE (1 of 3 - 19+ 3-dose series) 2009 COVID-19 VACCINE (2023-2 5 season) 2024 INFLUENZA VACCINE (#1) 2024 DEPRESSION SCREENING 09/17/2024 ZOSTER VACCINE (1 of 2) 2040 HIB VACCINE Aged Out No longer eligi ble based on patient's age to complete this topic HPV VACCINE Aged Out No longer eligi ble based on patient's age to complete this topic MENINGOCOCCAL (Group B) VACCINE Aged Out No longer eligible based on patient's age to complete this topic MENINGOCOCCAL VACCINE Aged Out No lashawn kahlil eligible based on patient's age to complete this topic
--- OUTSIDE RECORDS SUMMARY | 2024-10-30 17:36 | XMS_ITS | Clinical Summary ---
Author Organization [facility] Address [address] [place] [address] Care Team Providers Care Horse Show Judge Name Role Phone JacquesSelena NP Primary Care Provider + [phone] Hazel Bose MD Unavailable Allergies Active Allergy Reactions Criticality Noted Date Comments Bee Pollen Swelling Medium Venom-Wasp Swelling Medium Medications levETIRAcetam (KEPPRA) 1,000 mg tablet Take 1 tablet (1,000 mg total) by mouth 2 (two) times a day 180 tablet 3 Active Additional Information Patient taking differently:1,000 mg oral 2 times daily,Indications: Tonic-Clonic Epilepsy Treatment Adjunct, Informant: Self, Reported on 08/20/2023 oxyCODONE-aceta minophen (PERCOCET) 5-325 mg per tabletIndicatio ns:severe pain Take 1 tablet by mouth every 4 (four) hours as needed for pain 12 tablet 3 Active Additional Information Patient not taking.Informant: Self, Reported on 09/11/2023 ibuprofen (ADVIL,MOTRIN) 800 mg tabletIndicatio ns:Pain Take 1 tablet (800 mg total) by mouth 3 (three) times a day 21 tablet 3 Active Additional Information Patient not taking.Informant: Self, Reported on 01/21/2024 acetaminophen 500 mg capsuleIndicati ons:Pain Take 2 capsules (1,000 mg total) by mouth every 6 (six) hours as needed for mild pain (pain scale 1-4) Active HYDROcodone-new taminophen (NORCO) 5-325 mg per tabletIndicatio ns:Pain Take 1 tablet by mouth every 4 (four) hours as needed for pain 30 tablet 3 Active Additional Information Patient not taking.Reported on 01/21/2024 OXcarbazepine (TRILEPTAL) 150 mg tablet Take 3 tablets (450 mg total) by mouth 2 (two) times a day 180 tablet 4 Active Active Problems Patient Care Coordination No te Formatting of this note migh t be different from the original. 08/15/24- Left Shoulder Pain/Fx after Breakthrough Seizure. 08/22/24- s/p ORIF of a left scapula fracture Last Seen- 12/28/23 Trauma Clinic F/U- PRN Continue Home Exercises WBAT Problem Noted Date Diagnosed Date Closed fracture of left scapula 08/16/2023 ELIZABETH on CPAP 07/03/2023 Breakthrough seizure (CMS/HCC) 07/02/2023 Acute viral syndrome 09/25/2022 Nausea and vomiting 09/25/2022 Epilepsy undetermined as to focal or generalized Encounters Date Type Department Care Team Description 10/14/2024 Telephone [facility] Sleep Medicine at [address] [place] [address] Hazel Bose MD 09/08/2024 Telephone [facility] [address] [place] [address] [address] [place] [address] Olga Jamil NP from Last 3 Months Immunizations Name Administration Dates Next Due Influenza, Quadrivalent, Spl it, Preservative Free, Intramuscular 07/04/2023 Surgical History Surgery Date Site/Laterality Comments APPENDECTOMY VASECTOMY Medical History Medical History Date Comments Headache, tension-type Seizures (HCC) ELIZABETH on CPAP 07/03/2023 Family History Medical History Relation Name Comments Seizures Father Arthritis Mother COPD Mother Diabetes Mother Hypertension Mother Kidney disease Mother Anesthesia problems Neg Hx Relation Name Status Comments Father Mother Social History Tobacco Use Types Packs/Day Years Used Date Smoking Tobacco: Former Cigarettes 1 12 0 09/17/2007 - 09/17/2019 Smokeless Tobacco: Never Tobacco Cessation:Counseling Given: Not Answered Alcohol Use Standard Drinks/Week Comments Not Currently 0 (1 standard drink = 0.6 oz pur e alcohol) AUDIT-C Answer Date Recorded Q1: How often do you have a drink containing alcohol? Never 12/28/2023 Q2: How many drinks containi ng alcohol do you have on a typical day when you are drinking? Patient does not drink Q3: How often do you have si x or more drinks on one occasion? Never 12/28/2023 Hunger Vital Sign Answer Date Recorded Within the past 12 months, y ou worried that your food would run out before you got the money to buy more. Never true 12/28/19 24 Within the past 12 months, t he food you bought just didn't last and you didn't have money to get more. Never true 12/28/2023 Personal Safety Answer Date Recorded Have you ever been in or are you currently in a harmful physical or emotional relationship or is someone making you feel afraid or unsafe? Denies 08/22/2023 Sex and Gender Information Value Date Recorded Sex Assigned at Not on file Legal Sex Male 3:38 PM FLOWER GROWER Gender Identity Not on file Sexual Orientation Not on file Obstetrics History Last Filed Vital Signs Vital Sign Reading Time Taken Comments Blood Pressure 129/80 05/02/2024 8:48 AM CDT Pulse 86 05/02/2024 8:48 AM CDT Temperature 36 C (96.8 F) 08/22/2023 1:50 PM FLOWER GROWER Respiratory Rate 18 01/21/2024 1:17 PM CDT Oxygen Saturation 94% 05/02/2024 8:48 AM CDT Inhaled Oxygen Concentration - - Weight 123.8 kg (273 lb) 05/02/2024 8:48 AM CDT Height 182.9 cm (6' 0.01 ) 05/02/2024 8:48 AM CD T Body Mass Index 37.02 05/02/2024 8:48 AM CDT Plan of Treatment Health Maintenance Due Date Last Done Comments Depression Screening 1990 Hepatitis C Screening 1990 Varicella Vaccines (1 of 2 - 13+ 2-dose series) 2003 DTaP/Tdap/Td Vaccine (6 - Tdap) 04/19/2005 04/18/2005, 04/26/1995, 11/20/1991, Additional history exists Regular Well Visit/Exam 18-64 2008 Influenza Vaccine (#1) 2024 07/04/2023 Hepatitis B Screening Completed 11/25/2002 , 06/20/2002, 07/23/2000 HPV Vaccines Aged Out No longer eligi ble based on patient's age to complete this topic Pneumococcal vaccine <65 Aged Out No longer eligible based on patient's age to complete this topic Medical Devices Implanted Type Area Crossword Puzzle Maker Device Identifier Shelf Expiration Date Model / Serial / Lot [employer] Plate Bone Straight 20 Hole Reinforced 2.7mm Ti [id number] - [id number] Implanted:Qty: 1 on 08/22/2023 by Marvel Nolan MD at [facility] Plate Left: Scapula [employer] AR-21413T- 16 / / [employer] Plate Bone Straight 10 Hole Small Bone 2.4mm Ti Lb-[id number]-00 - [id number] Implanted:Qty: 1 on 08/22/2023 by Marvel Nolan MD at [facility] Plate Left: Scapula [employer] AR-[id number]- 07 / / [employer] Screw Bone Low Profile Screws Titanium L14mm Od2.4mm Cortex Laser Marquis Head [id number] - [id number] Implanted:Qty: 2 on 08/22/2023 by Marvel Nolan MD at [facility] Screw Left: Scapula [employer] AR-[id number] 4-14 / / [employer] Screw Bone Threaded 2.7x13mm Ti Eh-14037h-92 - [id number] Implanted:Qty: 1 on 08/22/2023 by Marvel Nolan MD at [facility] Screw Left: Scapula [employer] AR-50911G- 13 / / [employer] Screw Bone Cortical Threaded 2.7x15mm Ti Ar-24414-17 - [id number] Implanted:Qty: 2 on 08/22/2023 by Marvel Nolan MD at [facility] Screw Left: Scapula [employer] AR-72793-6 5 / / [employer] Screw Bone Low Profile Screws Titanium L12mm Od2.4mm Cortex Laser Marquis Head Yh-[id number] - [id number] Implanted:Qty: 1 on 08/22/2023 by Marvel Nolan MD at [facility] Screw Left: Scapula [employer] AR-[id number] 4-12 / / [employer] Screw Bone Low Profile Screws Titanium L10mm Od2.4mm Cortex Laser Marquis Head Hi-[id number] - [id number] Implanted:Qty: 1 on 08/22/2023 by Marvel Nolan MD at [facility] Screw Left: Scapula [employer] AR-4540MC5 4-10 / / [employer] Screw Bone Low Profile Screws Titanium L15mm Od2.4mm Cortex Laser Marquis Head [id number] Implanted:Qty: 4 on 08/22/2023 by Marvel Nolan MD at [facility] Screw Left: Scapula [employer] AR-[id number] 4-15 / / Description:Approved by Robe rt [employer] Screw Bone Low Profile Screws Titanium L10mm Od2.4mm Cortex Laser Marquis Head [id number] Implanted:Qty: 4 on 08/22/2023 by Marvel Nolan MD at [facility] Screw Left: Scapula [employer] AR-[id number] 4-13 / / Description:Approved by Robe rt [employer] Screw Bone Low Profile Screws Titanium L11mm Od2.4mm Cortex Laser Marquis Head [id number] Implanted:Qty: 1 on 08/22/2023 by Marvel Nolan MD at [facility] Screw Left: Scapula [employer] AR-[id number] 4-11 / / [employer] Screw Bone Low Profile Screws Titanium L12mm Od2.4mm Cortex Laser Marquis Head Sq-[id number] - [id number] Implanted:Qty: 1 on 08/22/2023 by Marvel Nolan MD at [facility] Screw Left: Scapula [employer] AR-1300LD3 4-12 / / [employer] Screw Bone Threaded 2.7x16mm Ti Ni-36591g-74 - [id number] Implanted:Qty: 2 on 08/22/2023 by Marvel Nolan MD at [facility] Screw Left: Scapula [employer] AR-28159F- 16 / / [employer] Screw Bone Low Profile L18mm Od2.4mm Cortex Bi-[id number] - [id number] Implanted:Qty: 1 on 08/22/2023 by Marvel Nolan MD at [facility] Left: Scapula [employer] AR-7089HQ3 4-18 / / [employer] Plate Bone Straight 8 Hole Reinforced Small Bone 2.4mm Ti Ou-98381t-01 - [id number] Implanted:Qty: 1 on 08/22/2023 by Marvel Nolan MD at [facility] [employer] AR-34090 P- 19 / / Explanted Type Area Crossword Puzzle Maker Device Identifier Shelf Expiration Date Model / Serial / Lot [employer] Screw Bone Cortical Threaded 2.7x14mm Ti Ar-32160-20 - [id number] Explanted:Qty: 2 on 08/22/2023 at [facility] Screw Left: Scapula [employer] AR-52528-8 4 / / [employer] Screw Bone Cortical Threaded 2.7x13mm Ti Ar-10665-34 - [id number] Explanted:Qty: 1 on 08/22/2023 at [facility] Screw Left: Scapula [employer] AR-55474-8 3 / / [employer] Screw Bone Threaded Locking 2.4x14mm Ti Ak-57494o-57 - [id number] Explanted:Qty: 1 on 08/22/2023 at [facility] Left: Scapula [employer] AR-19104Q- 14 / / Insurance [facility] [id number] [place] [address] [facility] Advance Directives For more information, please contact: [phone] * Full Code (Latest Code Status on File) Date Activated Date Inactivated Comments 07/02/2023 8:04 AM 07/04/2023 7:44 PM Care Teams Horse Show Judge Relationship Specialty Start Date End Date Selena Hanna NP [address] [place] [address] PCP - General 03/14/21 Hazel Bose MD [address] [place] [address] [address] [place], [place] [address], [place] [address] Consulting Physician Sleep Medicine 07/04/23
--- OUTSIDE RECORDS SUMMARY | 2024-10-30 17:36 | XMS_ITS | Referral Summary ---
Author Organization [facility] Address [address] [address] Care Team Providers Care Biofuels Production Manager Name Role Phone Unavailable Primary Care Provider Unavailabl e Source Comments [facility],non-owned Affiliates and Associated Physician Practices is amultiple site organization consisting of ambulatory clinics and hospital sitesin [place], [place] and [place]. This disclosure is being madepursuant to the Care Everywhere program and may not contain all information available regarding this patient. Last updated 18.[facility] Allergies Active Allergy Reactions Criticality Noted Date Comments Pneumococcal Vaccine Nausea and/or Vomiting Low Medications * Be aware that medications may not be up to date on this document. Alwaysverify current medications with the patient. Medication Sig Dispensed Refills Start Date End Date Status topiramate (TOPAMAX) 200 MG tabletIndications:Loc alz-rltd symptomatic epilepsy w cmplx part rula, francia, wo status ([facility]),Medication monitoring encounter Take 1 tablet by mouth 2 times daily 60 tablet 4 08/07/2019 Active OXcarbazepine (TRILEPTAL) 150 MG tabletIndications:Loc alz-rltd symptomatic epilepsy w cmplx part sz, notintrac, wo status ([facility]),Medication monitoring encounter TAKE 3 TABLETS BY MOUTH [...] cmplx part sz, francia, wo status 12/20/2016 Social History Tobacco Use [...] Comments Blood Pressure 126/83 08/07/2019 1:12 PM MANAGER MBA Pulse 64 08/07/2019 1:12 PM MANAGER MBA Temperature 36.7 C (98.1 F) 07/31/2019 6:00 AM MANAGER MBA Respiratory Rate 16 07/31/2019 5:17 AM MANAGER MBA Oxygen Saturation 97% 08/07/2019 1:12 PM MANAGER MBA Inhaled Oxygen Concentration - - Weight 108.4 kg (239 lb) 08/07/2019 1:12 PM MANAGER MBA Height 185.4 cm (6' 1 ) 08/07/2019 1:12 PM MANAGER MBA Body Mass Index 31.53 08/07/2019 1:12 PM MANAGER MBA Plan of Treatment Not on file
--- OUTSIDE RECORDS SUMMARY | 2024-10-30 17:36 | XMS_ITS | Referral Summary ---
Author Organization [facility] Address [address] [place] [address] Care Team Providers Care Poleyard Supervisor Name Role Phone JacquesSelena NP Primary Care Provider Hazel Bose MD Unavailable Encounters Date Type Department Care Team Description 10/14/[address] [facility] Sleep Medicine at [address] [place] [address] Hazel Bose MD 09/08/2024 Telephone [facility] [address] [place] [address] [address] [place] [address] Olag Jamil NP from Last 3 Months Allergies Active Allergy Reactions Criticality Noted Date [...] Epilepsy undetermined as to focal or generalized Immunizations Name Administration Dates Next Due Influenza, Quadrivalent, Spl it, Preservative Free, Intramuscular 07/04/2023 Social History Tobacco Use Types Packs/Day Years [...] on file Legal Sex Male 3:38 PM PROBATION AND PAROLE OFFICER Gender Identity Not on file Sexual Orientation Not on file Last Filed Vital Signs Vital Sign Reading Time Taken Comments Blood Pressure 129/80 05/02/2024 8:48 AM CDT Pulse 86 05/02/2024 8:48 AM CDT Temperature 36 C (96.8 F) 08/22/2023 1:50 PM PROBATION AND PAROLE OFFICER Respiratory Rate 18 01/21/2024 1:17 PM CDT Oxygen Saturation 94% 05/02/2024 8:48 AM CDT Inhaled Oxygen Concentration - - Weight 123.8 kg (273 lb) 05/02/2024 8:48 AM CDT Height 182.9 cm (6' 0.01 ) 05/02/2024 8:48 AM CD T Body Mass Index 37.02 05/02/2024 8:48 AM CDT Plan of Treatment Not on file Medical Devices Implanted Type Area Bead Forming Machine Operator Device Identifier Shelf Expiration Date Model / Serial / Lot [employer] Plate Bone Straight 20 Hole Reinforced 2.7mm Ti [id number] - [id number] Implanted:Qty: 1 on 08/22/2023 by Marvel Nolan MD at [facility] Plate Left: Scapula [employer] AR-37020W- 16 / / [employer] Plate Bone Straight 10 Hole Small Bone 2.4mm Ti Gs-92515b-20 - [id number] Implanted:Qty: 1 on 08/22/2023 by Marvel Nolan MD at [facility] Plate Left: Scapula [employer] AR-68662X- 07 / / [employer] Screw Bone Low Profile Screws Titanium L14mm Od2.4mm Cortex Laser Marquis Head Ir-3665vt94-79 - [id number] Implanted:Qty: 2 on 08/22/2023 by Marvel Nolan MD at [facility] Screw Left: Scapula [employer] AR-3546OU7 4-14 / / [employer] Screw Bone Threaded 2.7x13mm Ti Nc-70080d-53 - [id number] Implanted:Qty: 1 on 08/22/2023 by Marvel Nolan MD at [facility] Screw Left: Scapula [employer] AR-36028Z- 13 / / [employer] Screw Bone Cortical Threaded 2.7x15mm Ti Ar-64365-40 - [id number] Implanted:Qty: 2 on 08/22/2023 by Marvel Nolan MD at [facility] Screw Left: Scapula [employer] AR-01364-0 5 / / [employer] Screw Bone Low Profile Screws Titanium L12mm Od2.4mm Cortex Laser Marquis Head Nr-[id number] - [id number] Implanted:Qty: 1 on 08/22/2023 by Marvel Nolan MD at [facility] Screw Left: Scapula [employer] AR-[id number] 4-12 / / [employer] Screw Bone Low Profile Screws Titanium L10mm Od2.4mm Cortex Laser Marquis Head Ua-8039hi62-14 - [id number] Implanted:Qty: 1 on 08/22/2023 by Marvel Nolan MD at [facility] Screw Left: Scapula [employer] AR-0303SP6 4-10 / / [employer] Screw Bone Low Profile Screws Titanium L15mm Od2.4mm Cortex Laser Marquis Head [id number] Implanted:Qty: 4 on 08/22/2023 by Marvel Nolan MD at [facility] Screw Left: Scapula [employer] AR-[id number] 4-15 / / Description:Approved by Bobby louie [employer] Screw Bone Low Profile Screws Titanium L10mm Od2.4mm Cortex Laser Marquis Head [id number] Implanted:Qty: 4 on 08/22/2023 by Marvel Nolan MD at [facility] Screw Left: Scapula [employer] AR-[id number] 4-13 / / Description:Approved by Bobby louie [employer] Screw Bone Low Profile Screws Titanium L11mm Od2.4mm Cortex Laser Marquis Head [id number] Implanted:Qty: 1 on 08/22/2023 by Marvel Nolan MD at [facility] Screw Left: Scapula [employer] AR-[id number] 4-11 / / [employer] Screw Bone Low Profile Screws Titanium L12mm Od2.4mm Cortex Laser Marquis Head Zi-[id number] - [id number] Implanted:Qty: 1 on 08/22/2023 by Marvel Nolan MD at [facility] Screw Left: Scapula [employer] AR-3129AZ5 4-12 / / [employer] Screw Bone Threaded 2.7x16mm Ti Vy-[id number]-50 - [id number] Implanted:Qty: 2 on 08/22/2023 by Marvel Nolan MD at [facility] Screw Left: Scapula [employer] AR-57270Q- 16 / / [employer] Screw Bone Low Profile L18mm Od2.4mm Cortex Kg-[id number] - [id number] Implanted:Qty: 1 on 08/22/2023 by Marvel Nolan MD at [facility] Left: Scapula [employer] AR-[id number] 4-18 / / [employer] Plate Bone Straight 8 Hole Reinforced Small Bone 2.4mm Ti Bq-45852v-48 - [id number] Implanted:Qty: 1 on 08/22/2023 by Marvel Nolan MD at [facility] [employer] AR-03968 P- 19 / / Explanted Type Area Bead Forming Machine Operator Device Identifier Shelf Expiration Date Model / Serial / Lot [employer] Screw Bone Cortical Threaded 2.7x14mm Ti Ar-27487-17 - [id number] Explanted:Qty: 2 on 08/22/2023 at [facility] Screw Left: Scapula [employer] AR-81428-3 4 / / [employer] Screw Bone Cortical Threaded 2.7x13mm Ti Ar-41353-39 - [id number] Explanted:Qty: 1 on 08/22/2023 at [facility] Screw Left: Scapula [employer] AR-36258-8 3 / / [employer] Screw Bone Threaded Locking 2.4x14mm Ti Ri-03231i-83 - [id number] Explanted:Qty: 1 on 08/22/2023 at [facility] Left: Scapula [employer] AR-93880V- 14 / / Insurance [facility] [id number] [place] [address] [facility] Advance Directives For more information, please contact: [phone] * Full Code (Latest Code Status on File) Date Activated Date Inactivated Comments 07/02/2023 8:04 AM 07/04/2023 7:44 PM Care Teams Poleyard Supervisor Relationship Specialty Start Date End Date Selena Hanna NP [address] [address] PCP - General 03/14/21 Hazel Bose MD [address] [place] [address] [address] Consulting Physician Sleep Medicine 07/04/23
[2024-10-30 18:06] VITALS: BP 130/83; PULSE 82; RESP 16; TEMP 36.7; O2SAT 98
--- NOTE | 2024-10-30 19:52 | ED.GENADULT ---
HPI - General Adult General Chief complaint: Upper Respiratory Infection Stated complaint: ear pain Time Seen by Provider: 10/30/24 19:50 Source: patient, RN notes reviewed and old records reviewed Mode of arrival: ambulatory Limitations: no limitations History of Present Illness HPI narrative: 34 year old male presents to [facility] with complaints of right ear pain which started last night.Patient reports that he has not noted any drainage from his righ ear or any decreased hearing. Patient reports that he has been taking Tylenol for his discomfort with last dose at 1430 today.Patient reports history of ear infections i past with 3 sets of ear tubes growing up. MD complaint: ear pain right Onset (ago): day(s) (started last night) Severity: moderate Severity scale (1-10): 7 Treatments prior to arrival: other (Tylenol) Related Data Home Medications ?Medication ?Instructions ?Recorded ?Confirmed ?Last Taken ?Type levetiracetam 1,000 mg tablet 1,000 mg PO BID 12/01/21 05/10/24 Unknown History oxcarbazepine 150 mg tablet 450 mg PO TID 12/01/21 05/10/24 Unknown History Allergies Allergy/AdvReac Type Severity Reaction Status Date / Time No Known Allergies Allergy Verified 10/30/24 18:27 Review of Systems Review of Systems: CONSTITUTIONAL: Reports malaise, no chills, sweats, or fever. EYES: Denies visual changes, redness, or discharge. ENT: Reports rhinorrhea, congestion, no sinus pain,right otalgia and no sore throat. CARDIOVASCULAR: Denies chest pain, palpitations, or edema. RESPIRATORY: Reports no cough.? Denies dyspnea. GASTROINTESTINAL: Denies abdominal pain, nausea, vomiting, diarrhea SKIN: Denies rash or itching. MUSCULOSKELETAL: Denies myalgia. NEUROLOGIC: Denies headache. All systems reviewed & are unremarkable except as noted in HPI and below PMFSH Past Medical History Medical History Scapular fracture left with surgical repair Seizure Surgical History Surgical History History of placement of ear tubes x3 History of appendectomy Family History Family History Mother Family history non-contributory Social History Social History Smoking status: Former smoker Alcohol use details: reports no alcohol Substance use: current Substance use type: marijuana Gender identity (if verbalized by the patient): Male Sexual Orientation (if Verbalized by the Patient): Straight or Heterosexual Spiritual care concerns: No Comments At time of signature, agree with nursing past medical, surgical, social and family history. There is no relevant family history pertinent to the presenting complaint Exam Narrative: GENERAL: Well-appearing, well-nourished, and in no acute distress. HEAD: Normocephalic EYES: PERRLA, conjunctivae clear ENT: Nares clear, turbinates edematous and erythematous, clear discharge. Mucous membranes moist Right TM red and ear canal red and irritated no drainage noted, Left. TM pearly pisano with dull light reflex; no tragal tenderness. Oropharynx erythematous without lesions. Tonsils not enlarged and without exudate, no drooling, no hoarseness, no trismus, uvula midline.post nasal drainage NECK: Supple. No lymphadenopathy CHEST: Clear to auscultation, breath sounds equal. No wheezing, rhonchi, rales, or stridor. No respiratory distress, speaks in full sentences.no cough noted SAO2 98% on room air HEART: Regular rate and rhythm. No murmur heard. SKIN: Warm, dry, no rash. NEURO: Alert and oriented x3. PSYCH: Normal mood and affect Course Course Emergency Course: Patient is aware of diagnosis, understands and agrees to treatment plan.? Anticipatory guidance given.? Patient agrees to follow-up as directed and is aware of reasons to seek care at the emergency department. Portions of this record may have been created with voice recognition software Level of Care: Express Care Visit Vital Signs Vital signs: Vital Signs Temperature 36.7 C 10/30/24 18:06 Pulse Rate 82 10/30/24 18:06 Respiratory Rate 16 10/30/24 18:06 Blood Pressure 130/83 10/30/24 18:06 Pulse Oximetry 98 10/30/24 18:06 Oxygen Delivery Room Air 10/30/24 18:06 Temperature 36.7 C 10/30/24 18:06 Pulse Rate 82 10/30/24 18:06 Respiratory Rate 16 10/30/24 18:06 Blood Pressure 130/83 10/30/24 18:06 Pulse Oximetry 98 10/30/24 18:06 Oxygen Delivery Room Air 10/30/24 18:06 Reviewed Medical Decision Making Differential Diagnosis Differential Diagnosis: URI, otitis media, Otitis externa, otalgia, Medical Records Medical records reviewed: Yes I reviewed the external patient's medical records. Vital Signs Vital Signs: Vital Signs Temperature 36.7 C 10/30/24 18:06 Pulse Rate 82 10/30/24 18:06 Respiratory Rate 16 10/30/24 18:06 Blood Pressure 130/83 10/30/24 18:06 Pulse Oximetry 98 10/30/24 18:06 Oxygen Delivery Room Air 10/30/24 18:06 Temperature 36.7 C 10/30/24 18:06 Pulse Rate 82 10/30/24 18:06 Respiratory Rate 16 10/30/24 18:06 Blood Pressure 130/83 10/30/24 18:06 Pulse Oximetry 98 10/30/24 18:06 Oxygen Delivery Room Air 10/30/24 18:06 Critical Care Time Critical Care Time Critical Care Time: No Discharge Plan Discharge Clinical Impression: Otitis media Qualifiers: Otitis media type: serous Chronicity: acute Laterality: right Recurrence: not specified as recurrent Qualified Code(s): H65.01 - Acute serous otitis media, right ear Otitis externa Qualifiers: Otitis externa type: unspecified type Chronicity: acute Laterality: right Qualified Code(s): H60.501 - Unspecified acute noninfective otitis externa, right ear Patient Disposition: Home, Self-Care Condition: Stable Instructions: Antibiotic Form, Ear Infection (GEN) Additional Instructions: Increase fluids especially juices and water Zyrtec Claritin or Odalys daily heat to the face 20-30 minutes 4-6 times a day for pain Salt water gargles, throat lozenges or throat sprays as desired Tylenol or ibuprofen for any fever pain Antibiotic as prescribed complete all doses antibiotic ear drops as ordered If your symptoms persist, change or worsen significantly before you can contact your personal physician then please, without delay, go to the emergency department for further evaluation. Follow-up with PCP in 7-10 days or sooner if needed Follow up with PCP soon in regards to your blood pressure which is elevated above threshold for referral. Blood pressure above 120/80 may indicate pre-hypertension. 130/83 Patient Language: Citizen Of [place] Prescriptions: New amoxicillin-pot clavulanate 875-125 mg tablet 1 tablet PO Q12H Qty: 20 0RF ofloxacin 0.3 % drops 5 drp RIGHT EAR BID 7 Days Qty: 10 0RF No Action oxcarbazepine 150 mg tablet 450 mg PO TID levetiracetam 1,000 mg tablet 1,000 mg PO BID Follow-up/Referrals: PHYSICIAN,PARARESCUE MANAGER [Primary Care Provider] - Time of Disposition: 20:00 Quality René Coma Scale Eyes: Open Verbal: Oriented and Alert Motor: Follows Commands [place] Coma Total Score: 15
== END 2024-10-30 20:03 | disposition home or self-care (01) ==
PROVIDERS: Emergency Provider Registered Nurse
DX: H65.01 Acute serous otitis media, right ear (principal); H60.501 Unspecified acute noninfective otitis externa, right ear; Z87.891 Personal history of nicotine dependence; G40.909 Epilepsy, unspecified, not intractable, without status epilepticus
CPT/HCPCS: 99213; G0463

== ENCOUNTER 2025-05-04 15:18 | Emergency (ER) | payer OTHER, SELFPAY ==
[2025-05-04 15:27] VITALS: BP 140/82; PULSE 82; RESP 20; TEMP 36.1; O2SAT 99
--- NOTE | 2025-05-04 15:43 | ED.EAR ---
HPI - Ear Problem General Chief complaint: Ear Stated complaint: ear pain Time Seen by Provider: 05/04/25 15:35 Source: patient and RN notes reviewed Mode of arrival: ambulatory Limitations: no limitations History of Present Illness HPI Narrative: 35-year-old male presents Express Care complaining of left ear pain since this morning. Patient woke up with symptoms. Patient was swimming over the weekend. Patient denies any upper respiratory symptoms, cough, fevers body such as chest pain, shortness of breath, or any other symptoms. Patient has taken Tylenol help with the pain. Related Data Home Medications ?Medication ?Instructions ?Recorded ?Confirmed ?Last Taken ?Type levetiracetam 1,000 mg tablet 1,000 mg PO BID 12/01/21 05/10/24 Unknown History oxcarbazepine 150 mg tablet 450 mg PO TID 12/01/21 05/10/24 Unknown History Allergies Allergy/AdvReac Type Severity Reaction Status Date / Time No Known Allergies Allergy Verified 05/04/25 15:33 Review of Systems Review of Systems: CONSTITUTIONAL: Denies fever, chills, or sweats. EYES: Denies visual changes, redness, or discharge. ENT: Denies rhinorrhea, congestion, sore throat. Positive for otalgia. CARDIOVASCULAR: Denies chest pain, palpitations, or edema. RESPIRATORY: Denies cough or dyspnea. GASTROINTESTINAL: Denies abdominal pain, nausea, vomiting, or diarrhea. GENITOURINARY: Denies dysuria or hematuria. SKIN: Denies rash or itching. MUSCULOSKELETAL: Denies back pain, joint pain, or myalgia. NEUROLOGIC: Denies headache, numbness, or weakness. PSYCHIATRIC: Denies anxiety or depression. All other systems reviewed are negative, except as documented in HPI. [facility] Past Medical History Medical History Scapular fracture left with surgical repair Seizure Surgical History Surgical History History of placement of ear tubes x3 History of appendectomy Family History Family History Mother Family history non-contributory Social History Social History Smoking status: Former smoker Alcohol use details: reports no alcohol Substance use: current Substance use type: marijuana Gender identity (if verbalized by the patient): Male Sexual Orientation (if Verbalized by the Patient): Straight or Heterosexual Spiritual care concerns: No Comments At the time of my signature, I reviewed and agree with the nursing past medical, surgical, social, and family history. There is no relevant family history pertinent to the patient complaint. Exam Narrative: GENERAL: This is a well-nourished, well-developed adult, in no apparent distress. They are non ill-appearing, nontoxic appearing. HEAD: normocephalic, atraumatic. EYES: Sclera clear/white. Conjunctiva normal. Vision is grossly intact. Extraocular movements intact EARS: External ears normal, right auditory canal clear and without drainage, left auditory canal erythematous without exudate. Right TM normal without perforation. Left TM erythematous with suppuration and bulging. Left TM intact. Hearing grossly intact. NOSE: External nose normal with no obvious nasal discharge, nasal turbinates without redness, no rhinorrhea. THROAT: Mucous membranes moist, posterior pharynx clear, without erythema or swelling. Uvula midline. NECK: Neck supple, non-tender without lymphadenopathy, masses or thyromegaly. CARDIOVASCULAR: Regular rate and rhythm without murmurs, gallops, or rubs. RESPIRATORY: Clear to auscultation. Breath sounds equal bilaterally. No wheezes, rales, or rhonchi. SKIN: warm, Dry, intact with no suspicious lesions or rash, good texture and turgor. NEURO: awake, alert, and oriented to person, place and time. There were no obvious focal neurologic abnormalities. EXTREMITIES: No joint tenderness, effusion, or edema noted. Course Course Emergency Course: Portions of this record may have been created with voice recognition software Level of Care: Express Care Visit Vital Signs Vital signs: Vital Signs Temperature 97.0 F L 05/04/25 15:27 Pulse Rate 82 05/04/25 15: Respiratory Rate 20 05/04/25 15:27 Blood Pressure 140/82 05/04/25 15:27 Pulse Oximetry 99 05/04/25 15:27 Oxygen Delivery Room Air 05/04/25 15:27 Temperature 97.0 F L 05/04/25 15:27 Pulse Rate 82 05/04/25 15:27 Respiratory Rate 20 05/04/25 15:27 Blood Pressure 140/82 05/04/25 15:27 Pulse Oximetry 99 05/04/25 15:27 Oxygen Delivery Room Air 05/04/25 15:27 Reviewed Medical Decision Making MDM Narrative Medical decision making narrative: Patient has otitis media and otitis externa the left ear. Will treat with amoxicillin along with ofloxacin ear drops. Discussed physical exam findings. Advised supportive measures and signs/symptoms to go to the ER. Pt is appropriate for outpt treatment and f/u. Differential Diagnosis Differential Diagnosis: Otitis media, otitis externa, upper respiratory infection. Vital Signs Vital Signs: Vital Signs Temperature 97.0 F L 05/04/25 15:27 Pulse Rate 82 05/04/25 15:27 Respiratory Rate 20 05/04/25 15:27 Blood Pressure 140/82 05/04/25 15:27 Pulse Oximetry 99 05/04/25 15:27 Oxygen Delivery Room Air 05/04/25 15:27 Temperature 97.0 F L 05/04/25 15:27 Pulse Rate 82 05/04/25 15:27 Respiratory Rate 20 05/04/25 15:27 Blood Pressure 140/82 05/04/25 15:27 Pulse Oximetry 99 05/04/25 15:27 Oxygen Delivery Room Air 05/04/25 15:27 Critical Care Time Critical Care Time Critical Care Time: No Discharge Plan Discharge Clinical Impression: Otitis media Qualifiers: Otitis media type: suppurative Chronicity: acute Laterality: left Recurrence: non-recurrent Spontaneous tympanic membrane rupture: without spontaneous rupture Qualified Code(s): H66.002 - Acute suppurative otitis media without spontaneous rupture of ear drum, left ear Otitis externa Qualifiers: Otitis externa type: diffuse Chronicity: acute Laterality: left Qualified Code(s): H60.312 - Diffuse otitis externa, left ear Patient Disposition: Home Condition: Stable Instructions: Antibiotic Form, Ear Infection (GEN) Additional Instructions: Take ofloxacin ear drops as directed, finish the drops completely. Take amoxicillin as directed. Finished antibiotic completely. Symptomatic treatment includes: rest, fluids, and increase humidity of the air at home. You may take ibuprofen 600 mg to 800 mg every 6-8 hours. Do not exceed more than 800 mg of ibuprofen per dose. Do not exceed more than 3200 mg ibuprofen in a day. You may take up to 1000 mg Tylenol every 6-8 hours. Do not exceed 1000 mg per dose, do exceed more than 4000 mg of Tylenol in a day. Please schedule a follow-up visit with your personal physician for further evaluation and treatment within 3-5days. If your symptoms persist, change or worsen significantly, go to the emergency department for further evaluation. Patient Language: Armenian Prescriptions: New ofloxacin 0.3 % drops 10 drp LEFT EAR DAILY 7 Days Qty: 10 0RF amoxicillin 875 mg tablet 875 mg PO Q12H 7 Days Qty: 14 0RF No Action oxcarbazepine 150 mg tablet 450 mg PO TID levetiracetam 1,000 mg tablet 1,000 mg PO BID Follow-up/Referrals: PHYSICIAN,MOUNTER SMOKING PIPE [Primary Care Provider] - Time of Disposition: 15:42
--- OUTSIDE RECORDS SUMMARY | 2025-05-04 16:00 | XMS_ITS | Clinical Summary ---
Author Organization [facility] Address [address] [place] [address] Care Team Providers Care Water Fitness Instructor Name Role Phone Selena Hanna NP Primary Care Provider [phone] Hazel Bose MD Unavailable Allergies Active Allergy Reactions Criticality Noted Date Comments Bee Pollen Swelling Medium Venom-Wasp Swelling Medium Medications acetaminophen 500 mg capsuleIndicati ons:Pain Take 2 capsules (1,000 mg total) by mouth every 6 (six) hours as needed for mild pain (pain scale 1-4) Active levETIRAcetam (KEPPRA) 1,000 mg tablet Take 1 tablet (1,000 mg total) by mouth 2 (two) times a day 180 tablet 3 11/06/2024 Active OXcarbazepine (TRILEPTAL) 150 mg tablet Take 3 tablets (450 mg total) by mouth 2 (two) times a day 180 tablet 11 11/06/2024 Active Active Problems Patient Care Coordination No te Formatting of this note migh t be different from the original. 08/15/24- Left Shoulder Pain/Fx after Breakthrough Seizure. 08/22/24- s/p ORIF of a left scapula fracture Last Seen- 12/28/23 Trauma Clinic F/U- PRN Continue Home Exercises WBAT Problem Noted Date Diagnosed Date Closed fracture of left scapula 08/16/2023 ELIZABETH on CPAP 07/03/2023 Breakthrough seizure 07/02/2023 Acute viral syndrome 09/25/2022 Nausea and vomiting 09/25/2022 Epilepsy undetermined as to focal or generalized Immunizations Immunization Administration Dates Next Due Influenza, Quadrivalent, Spl it, Preservative Free, Intramuscular 07/04/2023 Surgical History Surgery Date Site/Laterality Comments APPENDECTOMY VASECTOMY SHOULDER SURGERY Left broken scapula Medical History Medical History Date Comments Headache, [...] on file Legal Sex Male 3:38 PM CERAMIC SAW TENDER Gender Identity Not on file Sexual Orientation Not on file Obstetrics History Last Filed Vital Signs Vital Sign Reading Time Taken Comments Blood Pressure 116/81 11/14/2024 9:32 AM CERAMIC SAW TENDER Pulse 64 11/14/2024 9:32 AM CERAMIC SAW TENDER Temperature 36 C (96.8 F) 08/22/2023 1:50 PM CERAMIC SAW TENDER Respiratory Rate 18 01/21/2024 1:17 PM CDT Oxygen Saturation 98% 11/14/2024 9:32 AM CERAMIC SAW TENDER Inhaled Oxygen Concentration - - Weight 127.6 kg (281 lb 3.2 oz) 11/14/2024 9:32 AM CERAMIC SAW TENDER Height 182.9 cm (6' 0.01) 11/14/2024 9:32 AM CS T Body Mass Index 38.13 11/14/2024 9:32 AM CERAMIC SAW TENDER Plan of Treatment Health Maintenance Due Date Last Done Comments Depression Screening 1990 Hepatitis C Screening 1990 Varicella Vaccines (1 of 2 - 13+ 2-dose series) 2003 DTaP/Tdap/Td Vaccine (6 - Tdap) 04/19/2005 04/18/2005, 04/26/1995, 11/20/1991, Additional history exists Regular Well Visit/Exam 18-64 2008 HPV Vaccines (1 - 3-dose SCDM series) 2017 Influenza Vaccine (#1) 2025 07/04/2023 Hepatitis B Screening Completed 11/25/2002 , 06/20/2002, 07/23/2000 Pneumococcal vaccine <65 Aged Out No longer eligible based on patient's age to complete this topic Medical Devices Implanted Type Area Tax Credit Leasing Consultant Device Identifier Shelf Expiration Date Model / Serial / Lot [employer] Plate Bone Straight 20 Hole Reinforced 2.7mm Ti [id number] - [id number] Implanted:Qty: 1 on 08/22/2023 by Marvel Nolan MD at [facility] Plate Left: Scapula [employer] [id number] / / [employer] Plate Bone Straight 10 Hole Small Bone 2.4mm Ti [id number] - [id number] Implanted:Qty: 1 on 08/22/2023 by Marvel Nolan MD at [facility] Plate Left: Scapula [employer] [id number]- [id number] / / [employer] Screw Bone Low Profile Screws Titanium L14mm Od2.4mm Cortex Laser Marquis Head [id number] - [id number] Implanted:Qty: 2 on 08/22/2023 by Marvel Nolan MD at [facility] Screw Left: Scapula [employer] [id number] 4-14 / / [employer] Screw Bone Threaded 2.7x13mm Ti [id number] - [id number] Implanted:Qty: 1 on 08/22/2023 by Marvel Nolan MD at [facility] Screw Left: Scapula [employer] [id number]- 13 / / [employer] Screw Bone Cortical Threaded 2.7x15mm Ti [id number] - [id number] Implanted:Qty: 2 on 08/22/2023 by Marvel Nolan MD at [facility] Screw Left: Scapula [employer] [id number] [id number] / / [employer] Screw Bone Low Profile Screws Titanium L12mm Od2.4mm Cortex Laser Marquis Head [id number] - [id number] Implanted:Qty: 1 on 08/22/2023 by Marvel Nolan MD at [facility] Screw Left: Scapula [employer] [id number] 4-12 / / [employer] Screw Bone Low Profile Screws Titanium L10mm Od2.4mm Cortex Laser Marquis Head [id number] - [id number] Implanted:Qty: 1 on 08/22/2023 by Marvel Nolan MD at [facility] Screw Left: Scapula [employer] [id number] 4-10 / / [employer] Screw Bone Low Profile Screws Titanium L15mm Od2.4mm Cortex Laser Marquis Head [id number] Implanted:Qty: 4 on 08/22/2023 by Marvel Nolan MD at [facility] Screw Left: Scapula [employer] [id number] 4-15 / / Description:Approved by Robe rt [employer] Screw Bone Low Profile Screws Titanium L10mm Od2.4mm Cortex Laser Marquis Head [id number] Implanted:Qty: 4 on 08/22/2023 by Marvel Nolan MD at [facility] Screw Left: Scapula [employer] [id number] 4-13 / / Description:Approved by Robe rt [employer] Screw Bone Low Profile Screws Titanium L11mm Od2.4mm Cortex Laser Marquis Head [id number] Implanted:Qty: 1 on 08/22/2023 by Marvel Nolan MD at [facility] Screw Left: Scapula [employer] [id number] 4-11 / / [employer] Screw Bone Low Profile Screws Titanium L12mm Od2.4mm Cortex Laser Marquis Head [id number] - [id number] Implanted:Qty: 1 on 08/22/2023 by Marvel Nolan MD at [facility] Screw Left: Scapula [employer] [id number] 4-12 / / [employer] Screw Bone Threaded 2.7x16mm Ti [id number] - [id number] Implanted:Qty: 2 on 08/22/2023 by Marvel Nolan MD at [facility] Screw Left: Scapula [employer] [id number]- 16 / / [employer] Screw Bone Low Profile L18mm Od2.4mm Cortex [id number] - [id number] Implanted:Qty: 1 on 08/22/2023 by Marvel Nolan MD at [facility] Left: Scapula [employer] [id number] 4-18 / / [employer] Plate Bone Straight 8 Hole Reinforced Small Bone 2.4mm Ti [id number] - [id number] Implanted:Qty: 1 on 08/22/2023 by Marvel Nolan MD at [facility] [employer] [id number]- 19 / / Explanted Type Area Tax Credit Leasing Consultant Device Identifier Shelf Expiration Date Model / Serial / Lot [employer] Screw Bone Cortical Threaded 2.7x14mm Ti [id number] - [id number] Explanted:Qty: 2 on 08/22/2023 at [facility] Screw Left: Scapula [employer] [id number] 4 / / [employer] Screw Bone Cortical Threaded 2.7x13mm Ti Ar-[id number] - [id number] Explanted:Qty: 1 on 08/22/2023 at [facility] Screw Left: Scapula [employer] AR-[id number] 3 / / [employer] Screw Bone Threaded Locking 2.4x14mm Ti Ti-[id number]-34 - [id number] Explanted:Qty: 1 on 08/22/2023 at [facility] Left: Scapula [employer] [id number]- 14 / / Insurance [facility] Advance Directives For more information, please contact: [phone] * Full Code (Latest Code Status on File) Date Activated Date Inactivated Comments 07/02/2023 8:04 AM 07/04/2023 7:44 PM Care Teams Water Fitness Instructor Relationship Specialty Start Date End Date Selena Hanna NP [phone] [address] PCP - General 03/14/21 Hazel Bose MD [address] [place] [address] [address] BOW[address] [place] [id number] Consulting Physician Sleep Medicine 07/04/23
--- OUTSIDE RECORDS SUMMARY | 2025-05-04 16:00 | XMS_ITS | Clinical Summary ---
Author Organization [facility] Address [address] [place] [address] Phone Care Team Providers Care Retail Pos Specialist Name Role Phone Provider, None Primary Care [...] 12:22 PM CDT Height 188 cm (6' 2) 03/15/2019 12:22 PM CDT Body Mass Index 28.89 03/15/2019 12:22 PM CDT Plan of Treatment Health Maintenance Due Date Last Done Comments Hepatitis C Virus (HCV) Screening 1990 TdaP Immunization 1990 Human Papillomavirus (HPV) Immunization (1 - 3-dose SCDM series) 2017 SARS-COV-2 Immunization ( season) 2024 10/13/2021, 09/15/2021 Influenza Immunization (#1) 2025 Respiratory Syncytial Virus (RSV) Immunization (Adult) (1 [...] measures to stabilize the patient. Care Teams Retail Pos Specialist Relationship Specialty Start Date End Date Provider, None [place] PCP - General Orthopaedic Surgery 10/15/16
--- OUTSIDE RECORDS SUMMARY | 2025-05-04 16:00 | XMS_ITS | Clinical Summary ---
Author Organization [facility] Address [address] [place] [address] Care Team Providers Care Bellstand Attendant Name Role Phone Unavailable Primary Care Provider Unavailabl e Source Comments [facility],non-owned Affiliates and Associated Physician Practices is amultiple site organization consisting of ambulatory clinics and hospital sitesin [place], [place], [place] and [place]. This disclosure is being madepursuant to the Care Everywhere program and may not contain all information available regarding this patient. Last updated 18.[facility] Allergies Active Allergy Reactions Criticality Noted Date Comments Pneumococcal Vaccine Nausea and/or Vomiting Low Medications * Be aware that medications may not be up to date on this document. Alwaysverify current medications with the patient. 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 (HCC),Medication monitoring encounter TAKE 2 TABLETS BY MOUTH TWICE A DAY 120 tablet 1 02/09/2022 Active Active Problems Problem Noted Date Diagnosed Date Seizures 07/31/2019 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, notintrac, wo status 12/20/2016 Family History Medical History [...] at Not on file Legal Sex Male 5:30 PM HOSPICE BEREAVEMENT COORDINATOR Gender Identity Not on file Sexual Orientation Not on file Occupation Industry Job Start Date Job End Date disabilty Not on file Not on file Not on file Last Filed Vital Signs Vital Sign Reading Time Taken Comments Blood Pressure 126/83 08/07/2019 1:12 PM HOSPICE BEREAVEMENT COORDINATOR Pulse 64 08/07/2019 1:12 PM HOSPICE BEREAVEMENT COORDINATOR Temperature 36.7 C (98.1 F) 07/31/2019 6:00 AM HOSPICE BEREAVEMENT COORDINATOR Respiratory Rate 16 07/31/2019 5:17 AM HOSPICE BEREAVEMENT COORDINATOR Oxygen Saturation 97% 08/07/2019 1:12 PM HOSPICE BEREAVEMENT COORDINATOR Inhaled Oxygen Concentration - - Weight 108.4 kg (239 lb) 08/07/2019 1:12 PM HOSPICE BEREAVEMENT COORDINATOR Height 185.4 cm (6' 1) 08/07/2019 1:12 PM HOSPICE BEREAVEMENT COORDINATOR Body Mass Index 31.53 08/07/2019 1:12 PM HOSPICE BEREAVEMENT COORDINATOR Plan of Treatment Health Maintenance Due Date Last Done Comments Opioid Medication Agreement - Annual 1990 HIV SCREENING 2005 HEPATITIS C SCREENING 04/16/2008 DTAP/TDAP/TD VACCINES (1 - Tdap) 2009 HEPATITIS B VACCINE (1 of 3 - 19+ 3-dose series) 2009 HPV VACCINE (1 - 3-dose SCDM series) 2017 COVID-19 VACCINE ( - 2023-2 5 season) 2024 DEPRESSION SCREENING 09/17/2024 INFLUENZA VACCINE (#1) 2025 ZOSTER VACCINE (1 of 2) 2040 HIB VACCINE Aged Out No longer eligi ble based on patient's age to complete this topic MENINGOCOCCAL (Group B) VACC INE SHARED DECISION-MAKING Aged Out No longer eligibl e based on patient's age to complete this topic MENINGOCOCCAL GROUPS A/C/Y/W VACCINE Aged Out No longer eligible b ased on patient's age to complete this topic Insurance
== END 2025-05-04 15:46 | disposition home or self-care (01) ==
DX: H66.002 Acute suppurative otitis media without spontaneous rupture of ear drum, left ear (principal); H60.312 Diffuse otitis externa, left ear; Z87.891 Personal history of nicotine dependence; G40.909 Epilepsy, unspecified, not intractable, without status epilepticus
CPT/HCPCS: 99213; G0463